=== PATIENT | male | born 1965 | race American Indian/Alaskan Native ===

== ENCOUNTER 2016-09-19 13:57 | Inpatient (IN) | payer OTHER ==
[2016-09-19 14:28] LABS: Basophils % (Auto) 0.5 % (0.0-1.8); Eosinophils % (Auto) 4.1 % (0.0-4.3); Hematocrit 26.4 % (35.5-45.6); Hemoglobin 8.6 gm/dl (11.8-15.2); Mean Corpuscular HGB Conc 32 % (32-34); Mean Corpuscular Hemoglobin 29 pg (28-32); Mean Corpuscular Volume 90 fl (84-94); Platelet Count 197 K/mm3 (140-440); Red Blood Count 2.94 M/mm3 (3.65-5.03); Red Cell Distribution Width 14.3 % (13.2-15.2); White Blood Count 7.5 K/mm3 (4.5-11.0)
[2016-09-19 14:42] LABS: BUN/Creatinine Ratio 15.53; Chloride 99.9 mmol/L (98-107); Potassium 4.3 mmol/L (3.6-5.0)
--- NOTE | 2016-09-19 15:12 | Cat Scan Report ---
CT scan of abdomen and pelvis without IV contrast: Findings: Normal lung bases. No pleural pericardial effusion. Multiple circumscribed hypodensities measuring up to 3.2 cm in diameter at the liver. Gallbladder is faintly visualized and appears unremarkable. Spleen appears normal. Pancreas appears unremarkable. Normal adrenals. Bilaterally enlarged kidneys with multiple innumerable cysts. Very faintly visualized and cannot be measured. Circumscribed scattered few hyperdensities right and left kidney probably hemorrhagic cysts. There is also tiny multiple calculi bilaterally. No evidence of hydronephrosis. Bladder appears normal. Moderate volume stool in gaseous colon. No bowel distention. No definite evidence of appendicitis or diverticulitis. There is noted large left inguinoscrotal hernia containing loops of small bowel without evidence of incarceration. Impression: Probable polycystic kidneys with multiple additional renal findings as detailed above. Multiple liver cysts. Large left inguinoscrotal hernia.
[2016-09-19 15:30] LABS: Bilirubin,Urine NEG (Negative); Blood,Urine MOD (Negative); Ketones,Urine NEG (Negative); Leukocyte Esterase,Urine MOD (Negative); Nitrite,Urine NEG (Negative); Urobilinogen,Urine < 2.0 mg/dL (<2.0)
[2016-09-19 15:31] LABS: RBC,Urine > 182.0 /HPF (0.0-6.0)
[2016-09-19] MEDS ORDERED: MACROBID PO ONE (20:27)
[2016-09-19] MEDS ORDERED: MORPHINE IM ONE (20:27)
[2016-09-19] MEDS ORDERED: MORPHINE IV ONE (20:45)
--- NOTE | 2016-09-19 21:53 | Emergency Department Report ---
HPI - General Chief Complaint: Abdominal Pain Time Seen by Provider: 09/19/16 20:02 - HPI HPI: This is a 51-year-old Afro-[place] Citizen male presents to the emergency department with a 2 day history of blood in the urine as well as some acute on chronic flank pains. He says that it goes from the left to the right side and he has a history of kidney stones that the "kidney doctor has been watching." However the patient does not have a kidney doctor but does have a urologist, at [facility]. He denies any nausea, vomiting, fever, chest pain or shortness of breath. He took some Tylenol with some relief. He has a past medical history of COPD, GERD, coronary artery disease with [place], hypertension, polycystic kidney disease. The patient does say that he has a history of some renal insufficiency but is not on dialysis. He says that the last time he had gross blood in the urine he ended up on dialysis and this was at [facility]. No recent travel or sick contacts at home. His primary care doctor is Dr. Charli Drake. ED Past Medical Hx - Past Medical History Hx Hypertension: Yes Hx Heart Attack/AMI: Yes (X 2) Hx Congestive Heart Failure: Yes Hx GERD: Yes Hx Renal Disease: Yes (POLYCYSTIC KIDNEY DISEASE) Hx Kidney Stones: Yes Hx COPD: Yes Additional medical history: LEFT INGUINAL HERNIA - Surgical History Additional Surgical History: KIDNEY STONES -LASER / LITHOTRIPSY. HERNIA REPAIR. PERMACATH AND REMOVAL - Social History Smoking Status: Former Smoker Substance Use Type: Alcohol - Medications Home Medications: Home Medications Medication Instructions Recorded Confirmed Last Taken Type AtorvaSTATin [Lipitor] 20 mg PO QHS 09/19/16 09/19/16 Unknown History Carvedilol [Coreg] 25 mg PO BID 09/19/16 09/19/16 Unknown History Finasteride [Proscar] 5 mg PO QDAY 09/19/16 09/19/16 Unknown History Furosemide [Lasix TAB] 40 mg PO QDAY 09/19/16 09/19/16 Unknown History ISOSORBIDE MONOnitrate [Imdur ER] 30 mg PO DAILY 09/19/16 09/19/16 Unknown History Potassium Chloride 20 meq PO DAILY 09/19/16 09/19/16 Unknown History Tamsulosin [Flomax] 0.4 mg PO QDAY 09/19/16 09/19/16 Unknown History hydrALAZINE [Apresoline] 25 mg PO TID 09/19/16 09/19/16 Unknown History ED Review of Systems ROS: Stated complaint: KIDNEY STONE Other details as noted in HPI Comment: All other systems reviewed and negative Constitutional: denies: chills, fever Eyes: denies: eye pain, eye discharge, vision change ENT: denies: ear pain, throat pain Respiratory: denies: cough, shortness of breath, wheezing Cardiovascular: denies: chest pain, palpitations Gastrointestinal: abdominal pain. denies: nausea, vomiting Genitourinary: hematuria. denies: discharge Musculoskeletal: denies: back pain, joint swelling, arthralgia Skin: denies: rash, lesions Neurological: denies: headache, weakness, paresthesias Physical Exam - Physical Exam Vital Signs: Vital Signs 09/19/16 09/19/16 09/19/16 14:05 20:19 21:09 Temperature 99.2 F 99.2 F Pulse Rate 100 H 98 H Respiratory 18 16 18 Rate Blood Pressure 113/69 Blood Pressure 153/92 [Right] O2 Sat by Pulse 100 98 Oximetry Physical Exam: GENERAL: The patient is well-developed well-nourished. HEENT: Normocephalic. Atraumatic. Extraocular motions are intact. Patient has moist mucous membranes. Pupils equal reactive to light bilaterally. NECK: Supple. Trachea is midline. CHEST/LUNGS: Clear to auscultation. There is no respiratory distress noted. HEART/CARDIOVASCULAR: Regular. There is no tachycardia. There is no gallop rub or murmur. ABDOMEN: Abdomen is soft. There is mild generalized abdominal tenderness to palpation. No guarding rebound tenderness. Patient has normal bowel sounds. There is no abdominal distention. SKIN: There is no rash. There is no edema. There is no diaphoresis. NEURO: The patient is awake, alert, and oriented. The patient is cooperative. The patient has no focal neurologic deficits. The patient has normal speech. MUSCULOSKELETAL: There is no tenderness or deformity. There is no limitation range of motion. There is no evidence of acute injury. ED Course Vital Signs 09/19/16 09/19/16 09/19/16 14:05 20:19 21:09 Temperature 99.2 F 99.2 F Pulse Rate 100 H 98 H Respiratory 18 16 18 Rate Blood Pressure 113/69 Blood Pressure 153/92 [Right] O2 Sat by Pulse 100 98 Oximetry ED Medical Decision Making - Lab Data Result diagrams: 09/19/16 14:13 09/19/16 14:13 - Radiology Data Radiology results: report reviewed CT scan of abdomen and pelvis without IV contrast: Findings: Normal lung bases. No pleural pericardial effusion. Multiple circumscribed hypodensities measuring up to 3.2 cm in diameter at the liver. Gallbladder is faintly visualized and appears unremarkable. Spleen appears normal. Pancreas appears unremarkable. Normal adrenals. Bilaterally enlarged kidneys with multiple innumerable cysts. Very faintly visualized and cannot be measured. Circumscribed scattered few hyperdensities right and left kidney probably hemorrhagic cysts. There is also tiny multiple calculi bilaterally. No evidence of hydronephrosis. Bladder appears normal. Moderate volume stool in gaseous colon. No bowel distention. No definite evidence of appendicitis or diverticulitis. There is noted large left inguinoscrotal hernia containing loops of small bowel without evidence of incarceration. Impression: Probable polycystic kidneys with multiple additional renal findings as detailed above. Multiple liver cysts. Large left inguinoscrotal hernia. - Medical Decision Making 51-year-old male presents the emergency department with 2 day history of gross hematuria as well some abdominal pain. He thought it might be kidney stones as he has a history of this. He also has history of polycystic kidney disease. Patient appears to have significant renal failure and the patient himself does not know what his baseline creatinine is but he is not usually on dialysis. The last time that he had gross hematuria with this kind of discomfort he ended up on dialysis at [facility]. Since the patient does not have a oil gauger, I will seek admission to the hospital for a nephrology consultation as my concern would be that the patient continues to have decline of his kidney function without quick follow-up with a oil gauger and the patient and his up on dialysis. Patient has been accepted for admission by the hospitalist, Dr. Wang. - Differential Diagnosis nephrolithiasis, hydronephrosis, polycystic kidney, malignancy Critical Care Time: No Critical care attestation.: If time is entered above; I have spent that time in minutes in the direct care of this critically ill patient, excluding procedure time. ED Disposition Clinical Impression: Gross hematuria Abdominal pain Qualifiers: Abdominal location: generalized Qualified Code(s): R10.84 - Generalized abdominal pain Renal failure Qualifiers: Renal failure chronicity: acute on chronic Chronic kidney disease stage: unspecified stage UTI (urinary tract infection) Qualifiers: Urinary tract infection type: acute cystitis Hematuria presence: with hematuria Qualified Code(s): N30.01 - Acute cystitis with hematuria Disposition: OP ADMIT IP TO THIS HOSP Is pt being admited?: Yes Condition: Stable Referrals: PRIMARY CAREMD [Primary Care Provider] - 3-5 Days Time of Disposition: 22:55
[2016-09-19] MEDS ORDERED: TYLENOL PR PRN (23:36)
--- NOTE | 2016-09-20 01:57 | History and Physical Report ---
History of Present Illness Date of examination: 09/19/16 Date of admission: 09/19/16 23:32 Chief complaint: Chief complaint is hematuria, order complaints include flank pain, History of present illness: History of presenting illness, patient is a 51-year-old male presenting to the emergency room with hematuria going on for few days and associated with flank pain. There is no history of fever, no history of nausea vomiting, no history of shortness of breath or chest pain, patient stated he has history of any stones in the past and is being watched by his urologist, also patient said his had hematuria in the past and ended up being on dialysis because of his chronic kidney problems which was treated at [facility]. Past History Past Medical History: acute [place], GERD, hypertension, renal failure, other ( POLYCYSTIC KIDNEY DISEASE, CKD,LEFT INGUINAL HERNIA) Past Surgical History: hernia repair Medications and Allergies Allergies Allergy/AdvReac Type Severity Reaction Status Date / Time No Known Allergies Allergy Unverified 09/19/16 14:08 Home Medications Medication Instructions Recorded Confirmed Last Taken Type AtorvaSTATin [Lipitor] 20 mg PO QHS 09/19/16 09/19/16 Unknown History Carvedilol [Coreg] 25 mg PO BID 09/19/16 09/19/16 Unknown History Finasteride [Proscar] 5 mg PO QDAY 09/19/16 09/19/16 Unknown History Furosemide [Lasix TAB] 40 mg PO QDAY 09/19/16 09/19/16 Unknown History ISOSORBIDE MONOnitrate [Imdur ER] 30 mg PO DAILY 09/19/16 09/19/16 Unknown History Potassium Chloride 20 meq PO DAILY 09/19/16 09/19/16 Unknown History Tamsulosin [Flomax] 0.4 mg PO QDAY 09/19/16 09/19/16 Unknown History hydrALAZINE [Apresoline] 25 mg PO TID 09/19/16 09/19/16 Unknown History Active Meds: Active Medications Acetaminophen (Tylenol) 650 mg SD Q4H PRN PRN Reason: Fever Ceftriaxone Sodium (Rocephin/Ns 1 Gm/50 Ml) 1 gm in 50 mls @ 100 mls/hr IV Q24HR ZACHARY PRN Reason: Protocol Morphine Sulfate (Morphine) 2 mg IV Q3H PRN PRN Reason: Pain, Moderate (4-6) Ondansetron HCl (Zofran) 4 mg IV Q6H PRN PRN Reason: Nausea And Vomiting Review of Systems Constitutional: no weight gain, no fever, no chills, no sweats, no night sweats , no anorexia, no fatigue, no weakness, no malaise, no poor appetite, no daytime sleepiness Eyes: bilateral: other (NO BILATERAL EYE SYMPTOMS) Ears, nose, mouth and throat: no ear pain, no ear discharge, no tinnitis, no decreased hearing, no nose pain, no nasal congestion, no nasal discharge, no sinus pressure, no sinus pain, no dental pain, no mouth pain, no dysphagia, no hoarseness, no sore throat, no swelling in mouth, no swelling in throat, no voice changes, no post-nasal drip, no headache, no vertigo, no pain front of neck, no neck fullness/pressure, no neck lump Cardiovascular: no chest pain, no orthopnea, no palpitations, no rapid/ irregular heart beat, no edema, no syncope, no lightheadedness, no shortness of breath, no dyspnea on exertion, no paroxysmal nocturnal dyspnea, no claudication , no phlebitis, no high blood pressure, no leg edema, no decreased exercise tolerance Respiratory: no cough, no cough with sputum, no excessive sputum, no hemoptysis , no shortness of breath, no dyspnea on exertion, no congestion, no wheezing, no pleurisy, no pain, no pain on inspiration, no sleep apnea, no respiratory infections, no home oxygen Gastrointestinal: no abdominal pain, no nausea, no vomiting, no diarrhea, no constipation, no change in bowel habits, no hematemesis, no coffee ground emesis , no melena, no hematochezia, no loss of appetite, no early satiety, no heartburn, no excessive gas, no jaundice, no dyspepsia/bloating, no early satiety, no lactose intolerance Genitourinary Male: hematuria, flank pain, kidney stones, other (LEFT INGUINAL HERNIA), no urinary frequency, no urinary hesitancy, no nocturia, no incontinence, no decreased libido, no testicular pain, no testicular lump, no difficulties fathering child, no polyuria, no urinary retention Rectal: no pain, no hemorrhoids, no flatulence Musculoskeletal: no neck pain, no shooting arm pain, no arm numbness/tingling, no low back pain, no shooting leg pain, no leg numbness/tingling, no morning stiffness, no muscle weakness, no muscle cramps, no myalgias, no limitation of motion, no frequent falls, no fractures, no loss of height Integumentary: no rash, no pruritis, no redness, no sores, no wounds, no jaundice, no boils, no blisters, no bullae, no lesions, no darkening of skin, no depigmentation, no acne, no dryness, no color changes, no unusual bruising, no change in hair/nails, no brittle nails, no striae, no hirsutism, no foot/leg ulcers, no onychomycosis Neurological: no head injury, no transient paralysis, no paralysis, no weakness , no parathesias, no numbness, no tingling, no seizures, no syncope, no tremors , no ataxia, no vertigo, no headaches, no migraines, no convulsions, no aphasia , no change in speech, no change in mentation, no confusion, no memory loss, no changes in smell/taste, no gait dysfunction, no motor disturbance, no sensory deficit, no double vision, no loss of vision, no hearing difficulties, no burning pain, no paralysis, no spasticity Psychiatric: no anxiety, no memory loss, no change in sleep habits, no sleep disturbances, no insomnia, no hypersomnia, no change in appetite, no change in libido, no suicidal ideation, no disorientation, no depression, no hopelessness , no anhedonia, no anxiety attacks, no difficulties concentrating, no confusion , no irritability, no sadness/tearfullness, no mood swings Endocrine: no cold intolerance, no heat intolerance, no polyphagia, no excessive thirst, no polydipsia, no polyuria, no nocturia, no excessive sweating , no flushing, no increase in ring/shoe/hat size, no proptosis, no deepening of the voice, no thyroid mass, no palpatations, no high blood sugars, no low blood sugars Hematologic/Lymphatic: no easy bruising, no easy bleeding, no lymphadenopathy, no lymphedema, no thrombophilia Allergic/Immunologic: no urticaria, no persistent infections, no anaphylaxis, no gluten intolerance, no seasonal allergies Exam - Constitutional Vitals: Temp Pulse Resp BP Pulse Ox 98.5 F 87 16 134/81 97 09/20/16 01:09 09/20/16 01:09 09/20/16 01:09 09/20/16 01:09 09/20/16 01:09 General appearance: Present: no acute distress. Absent: disheveled - EENT Eyes: Present: PERRL, EOM intact. Absent: scleral icterus, conjunctival injection, mydriasis ENT: hearing intact, clear oral mucosa, dentition normal, no oropharyngeal erythema, no poor dentition - Neck Neck: Present: supple, normal ROM. Absent: enlarged thyroid, carotid bruits - Respiratory Respiratory effort: normal - Cardiovascular Rhythm: regular Heart Sounds: Present: S1 & S2. Absent: gallop, systolic murmur, diastolic murmur, rub, click - Extremities Extremities: no ischemia, pulses intact, No edema Peripheral Pulses: within normal limits - Abdominal General gastrointestinal: Present: soft, non-tender, non-distended. Absent: tender, hypoactive bowel sounds, absent bowel sounds, hepatomegaly Male genitourinary: Present: left inguinal hernia. Absent: urethral discharge - Rectal Rectal Exam: deferred - Integumentary Integumentary: Present: clear, warm, dry, normal turgor. Absent: erythema, rash , clammy - Musculoskeletal Musculoskeletal: strength equal bilaterally - Psychiatric Psychiatric: appropriate mood/affect Results - Labs CBC & Chem 7: 09/19/16 14:13 09/19/16 14:13 Labs: Laboratory Last Values WBC 7.5 K/mm3 (4.5-11.0) 09/19/16 14:13 RBC 2.94 M/mm3 (3.65-5.03) L 09/19/16 14:13 Hgb 8.6 gm/dl (11.8-15.2) L 09/19/16 14:13 Hct 26.4 % (35.5-45.6) L 09/19/16 14:13 MCV 90 fl (84-94) 09/19/16 14:13 MCH 29 pg (28-32) 09/19/16 14:13 MCHC 32 % (32-34) 09/19/16 14:13 RDW 14.3 % (13.2-15.2) 09/19/16 14:13 Plt Count 197 K/mm3 (140-440) 09/19/16 14:13 Lymph % (Auto) 10.1 % (13.4-35.0) L 09/19/16 14:13 [place] % (Auto) 13.7 % (0.0-7.3) H 09/19/16 14:13 Eos % (Auto) 4.1 % (0.0-4.3) 09/19/16 14:13 Baso % (Auto) 0.5 % (0.0-1.8) 09/19/16 14:13 Lymph # 0.8 K/mm3 (1.2-5.4) L 09/19/16 14:13 [place] # 1.0 K/mm3 (0.0-0.8) H 09/19/16 14:13 Eos # 0.3 K/mm3 (0.0-0.4) 09/19/16 14:13 Baso # 0.0 K/mm3 (0.0-0.1) 09/19/16 14:13 Seg Neutrophils % 71.6 % (40.0-70.0) H 09/19/16 14:13 Seg Neutrophils # 5.4 K/mm3 (1.8-7.7) 09/19/16 14:13 Sodium 132 mmol/L (137-145) L 09/19/16 14:13 Potassium 4.3 mmol/L (3.6-5.0) 09/19/16 14:13 Chloride 99.9 mmol/L (98-107) 09/19/16 14:13 Carbon Dioxide 20 mmol/L (22-30) L 09/19/16 14:13 Anion Gap 16 mmol/L 09/19/16 14:13 BUN 73 mg/dL (9-20) H 09/19/16 14:13 Creatinine 4.7 mg/dL (0.8-1.5) H 09/19/16 14:13 Estimated GFR 16 ml/min 09/19/16 14:13 BUN/Creatinine Ratio 15.53 % 09/19/16 14:13 Glucose 123 mg/dL (75-100) H 09/19/16 14:13 Calcium 9.0 mg/dL (8.4-10.2) 09/19/16 14:13 Urine Color Red (Yellow) 09/19/16 15:02 Urine Turbidity Cloudy (Clear) 09/19/16 15:02 Urine pH 5.0 (5.0-7.0) 09/19/16 15:02 Ur Specific [place] 1.015 (1.003-1.030) 09/19/16 15:02 Urine Protein 100 mg/dl mg/dL (Negative) 09/19/16 15:02 Urine Glucose (UA) 50 mg/dL (Negative) 09/19/16 15:02 Urine Ketones Neg mg/dL (Negative) 09/19/16 15:02 Urine Blood Mod (Negative) 09/19/16 15:02 Urine Nitrite Neg (Negative) 09/19/16 15:02 Urine Bilirubin Neg (Negative) 09/19/16 15:02 Urine Urobilinogen < 2.0 mg/dL (<2.0) 09/19/16 15:02 Ur Leukocyte Esterase Mod (Negative) 09/19/16 15:02 Urine WBC (Auto) 30.0 /HPF (0.0-6.0) H 09/19/16 15:02 Urine RBC (Auto) > 182.0 /HPF (0.0-6.0) 09/19/16 15:02 Assessment and Plan - Patient Problems (1) Left inguinal hernia Current Visit: Yes Status: Acute (2) Gross hematuria Current Visit: Yes Status: Acute (3) Renal failure Current Visit: Yes Status: Acute Qualifiers: Renal failure chronicity: acute on chronic Acute renal failure type: A Chronic kidney disease stage: unspecified stage Plan to address problem: Patient will be admitted to medical floor and will be on IV Rocephin 1 g every 24 hours, patient will have CBC and basic metabolic panel checked this morning 09/20/2016 I will have nephrology consult with Dr. Ortiz because of chronic kidney disease, patient will also have surgical consult with Dr. Varela for left inguinal hernia, patient will be on IV morphine 2 mg every 3 hours as needed for pain I will be on when necessary medications like IV Zofran for nausea vomiting and Tylenol by mouth for fever or headache, DVT prophylaxis will be by sequential compressive device. (4) UTI (urinary tract infection) Current Visit: Yes Status: Acute Qualifiers: Urinary tract infection type: acute cystitis Hematuria presence: with hematuria Indwelling urinary catheter type: I Encounter type: E Qualified Code(s): N30.01 - Acute cystitis with hematuria
[2016-09-20 05:40] LABS: Hematocrit 29.1 % (35.5-45.6); Hemoglobin 9.5 gm/dl (11.8-15.2); Mean Corpuscular HGB Conc 33 % (32-34); Mean Corpuscular Hemoglobin 29 pg (28-32); Mean Corpuscular Volume 89 fl (84-94); Platelet Count 216 K/mm3 (140-440); Red Blood Count 3.29 M/mm3 (3.65-5.03); Red Cell Distribution Width 13.8 % (13.2-15.2); White Blood Count 8.5 K/mm3 (4.5-11.0)
[2016-09-20 06:04] LABS: BUN/Creatinine Ratio 17.04; Calcium 9.3 mg/dL (8.4-10.2); Chloride 102.3 mmol/L (98-107); Potassium 4.2 mmol/L (3.6-5.0)
[2016-09-20] MEDS: ZOFRAN IV PRN (06:25)
[2016-09-20] MEDS: MORPHINE IV PRN ×4 (06:25→23:01)
--- NOTE | 2016-09-20 09:57 | Admit Criteria Form ---
Admission Criteria Documentation: URINARY COMPLICATIONS Clinical Indications for Inpatient Care (Place 'X' for any and all applicable criteria): Ongoing inpatient care may be indicated for urinary complications with ANY ONE of the following: [X ]I. Urinary tract infection requiring inpatient care as indicated by ANY ONE of the following(8)(19)(20): [ ]a) Severe symptoms (eg, high fever, severe pain) [ ]b) Vomiting or dehydration requiring ongoing inpatient care [X ]c) IV antibiotic needs that cannot be managed at lower level of care [ ]d) Hemodynamic instability [ ]e) Obstruction of collecting system by stone or tumor [ ]II. Urinary retention requiring drainage or surgery (3)(4)(5)(17)(18) [ X]III. Renal failure (Use Renal Failure Criteria for further information.) [ ]IV. Oliguria(30) [ ]V. Post obstructive diuresis requiring close monitoring of urine output and intravenous compensation for excessive fluid losses(33) Extended stay beyond goal length of stay for primary condition may be needed until ALL of the following are present(3)(4)(5)(8): [ ]a) Renal function (creatinine) at baseline, or daily decreases in creatinine consistent with renal function return [ ]b) Voiding adequately or with urinary catheter or percutaneous suprapubic tube and management regimen in place that is performable at lower level of care. [ ]c) Urine output adequate [ ]d) Fever absent or resolving [ ]e) Infection absent or treatable at next level of care The original [employer] content created by [employer] has been revised. The portions of the content which have been revised are identified through the use of italic text or in bold, and [facility] has neither reviewed nor approved the modified material. All other unmodified content is copyright [employer] Please see references footnoted in the original [employer] edition 2016 Admission Criteria Met: Yes
--- NOTE | 2016-09-20 09:58 | Consultation ---
History of Present Illness - Reason for Consult Consult date: 09/20/16 acute renal failure, chronic renal failure, hyponatremia - History of Present Illness patient with h/o CKD due to polycystic kidney disease, does not follow with a campground manager, according to him he requried dialysis about 2 years ago but his kidney function improved since, he mention that his mother had the same problem and required dialysis at some point, he came to the ED for hematuria and flank pain for the last few days, he follows with urology for the issues, he has h/o kidney stones and UTI. when seen he stated he started to feel better when seen this AM but remains to have blood in the urine Past History Past Medical History: acute [place], GERD, hypertension, renal failure, other ( POLYCYSTIC KIDNEY DISEASE, CKD,LEFT INGUINAL HERNIA) Past Surgical History: hernia repair Medications and Allergies Allergies Allergy/AdvReac Type Severity Reaction Status Date / Time No Known Allergies Allergy Unverified 09/19/16 14:08 Home Medications Medication Instructions Recorded Confirmed Last Taken Type AtorvaSTATin [Lipitor] 20 mg PO QHS 09/19/16 09/19/16 Unknown History Carvedilol [Coreg] 25 mg PO BID 09/19/16 09/19/16 Unknown History Finasteride [Proscar] 5 mg PO QDAY 09/19/16 09/19/16 Unknown History Furosemide [Lasix TAB] 40 mg PO QDAY 09/19/16 09/19/16 Unknown History ISOSORBIDE MONOnitrate [Imdur ER] 30 mg PO DAILY 09/19/16 09/19/16 Unknown History Potassium Chloride 20 meq PO DAILY 09/19/16 09/19/16 Unknown History Tamsulosin [Flomax] 0.4 mg PO QDAY 09/19/16 09/19/16 Unknown History hydrALAZINE [Apresoline] 25 mg PO TID 09/19/16 09/19/16 Unknown History Active Meds: Active Medications Acetaminophen (Tylenol) 650 mg [place] Q4H PRN PRN Reason: Fever Ceftriaxone Sodium (Rocephin/Ns 1 Gm/50 Ml) 1 gm in 50 mls @ 100 mls/hr IV Q24HR ZACHARY PRN Reason: Protocol Sodium Chloride (Nacl 0.9% 1000 Ml) 1,000 mls @ 75 mls/hr IV DIRECT ZACHARY Morphine Sulfate (Morphine) 2 mg IV Q3H PRN PRN Reason: Pain, Moderate (4-6) Last Admin: 09/20/16 06:25 Dose: 2 mg Ondansetron HCl (Zofran) 4 mg IV Q6H PRN PRN Reason: Nausea And Vomiting Last Admin: 09/20/16 06:25 Dose: 4 mg Review of Systems All systems: negative (flank pain, hematuria) Exam - Vital Signs Vital signs: Vital Signs Temp Pulse Resp BP Pulse Ox 99.2 F 100 H 18 113/69 100 09/19/16 14:05 09/19/16 14:05 09/19/16 14:05 09/19/16 14:05 09/19/16 14:05 - General Appearance General appearance: well-developed, well-nourished EENT: ATNC, PERRL, mucous membranes moist Neck: Present: neck supple Respiratory: Clear to Ascultation, Normal Exam Heart: regular, S1S2 Gastrointestinal: Present: normoactive bowel sounds. Absent: tenderness, distended, guarding Integumentary: no rash, warm and dry Neurologic: no focal deficit, no asterixis, alert and oriented x3 Musculoskeletal: Present: other (no edema in BLE) Psychiatric: mood/affect appropriate, cooperative Results - Lab Results 09/20/16 05:23 09/20/16 05:23 Most recent lab results Calcium 9.3 mg/dL (8.4-10.2) 09/20/16 05:23 Assessment and Plan - Patient Problems (1) Chronic kidney disease (CKD) stage G4/A1, severely decreased glomerular filtration rate (GFR) between 15-29 mL/min/1.73 square meter and albuminuria creatinine ratio less than 30 mg/g Current Visit: Yes Status: Acute Plan to address problem: patient with h/o PCKD, baseline Cr is unknown will start IVF with NS 75 cc/h 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 renally dose meds strict I&O daily weights avoid nephrotixins (2) Anemia in chronic renal disease Current Visit: Yes Status: Acute Qualifiers: Chronic kidney disease stage: C Plan to address problem: iron panel in AM may need to start BARRY supplement (3) Gross hematuria Current Visit: Yes Status: Acute Plan to address problem: will placed bridges IVF as above on rocephin (4) UTI (urinary tract infection) Current Visit: Yes Status: Acute Qualifiers: Urinary tract infection type: acute cystitis Hematuria presence: with hematuria Indwelling urinary catheter type: I Encounter type: E Qualified Code(s): N30.01 - Acute cystitis with hematuria Plan to address problem: urine cultures are pending
[2016-09-20] MEDS: NACL 0.9% 1000 ML 1,000 ML IV SCH (10:30)
[2016-09-20] MEDS: ROCEPHIN/NS 1 GM/50 ML 1 GM/50 ML BAG IV SCH (10:41)
--- NOTE | 2016-09-20 12:45 | Progress Note ---
Assessment and Plan Assessment and plan: UTI with hematuria - Patient is on IV antibiotic - Patient has history of hematuria previously and has been followed by [facility] and have scheduled appointment after his discharge from here Acute on chronic kidney disease stage IV - Nephrology is consulted and patient may need dialysis - Patient previously dialyzed and it was discontinued after his kidney function get improved, patient currently may need dialysis, peritoneal dialysis - Surgery was consulted for PD placement and management of inguinal hernia Left inguinal hernia extending to the left testis - Surgery consulted for possible hernia repair Anemia of chronic disease/CKD DVT prophylaxis - heparin Disposition -Continue inpatient care History Interval history: Patient was seen and done this morning, patient has hematuria. Hospitalist Physical - Physical exam Narrative exam: Not in cardiopulmonary distress. The patient appeared chronically sick looking. Vital signs as documented. Head exam is unremarkable. No scleral icterus . Neck is without jugular venous distension, thyromegaly, or carotid bruits. Lungs are clear to auscultation. Cardiac exam reveals regular rate and Rhythm. First and second heart sounds normal. No murmurs, rubs or gallops. Abdominal exam reveals normal bowel sounds, no masses, no organomegaly and no aortic enlargement. Genitourinary patient has left inguinal hernia descending down to the testi.s Extremities are nonedematous and both femoral and pedal pulses are normal. MANAGER STATISTICAL PROGRAMMING: Alert and oriented 3. No focal weakness. - Constitutional Vitals: Temp Pulse Resp BP Pulse Ox 98.3 F 82 16 122/70 98 09/20/16 08:00 09/20/16 08:00 09/20/16 08:00 09/20/16 08:00 09/20/16 08:00 General appearance: Present: no acute distress. Absent: disheveled Results - Labs CBC & Chem 7: 09/20/16 05:23 09/20/16 05:23 Labs: Laboratory Last Values WBC 8.5 K/mm3 (4.5-11.0) 09/20/16 05:23 RBC 3.29 M/mm3 (3.65-5.03) L 09/20/16 05:23 Hgb 9.5 gm/dl (11.8-15.2) L 09/20/16 05:23 Hct 29.1 % (35.5-45.6) L 09/20/16 05:23 MCV 89 fl (84-94) 09/20/16 05:23 MCH 29 pg (28-32) 09/20/16 05:23 MCHC 33 % (32-34) 09/20/16 05:23 RDW 13.8 % (13.2-15.2) 09/20/16 05:23 Plt Count 216 K/mm3 (140-440) 09/20/16 05:23 Lymph % (Auto) 10.1 % (13.4-35.0) L 09/19/16 14:13 [place] % (Auto) 13.7 % (0.0-7.3) H 09/19/16 14:13 Eos % (Auto) 4.1 % (0.0-4.3) 09/19/16 14:13 Baso % (Auto) 0.5 % (0.0-1.8) 09/19/16 14:13 Lymph # 0.8 K/mm3 (1.2-5.4) L 09/19/16 14:13 [place]y # 1.0 K/mm3 (0.0-0.8) H 09/19/16 14:13 Eos # 0.3 K/mm3 (0.0-0.4) 09/19/16 14:13 Baso # 0.0 K/mm3 (0.0-0.1) 09/19/16 14:13 Seg Neutrophils % 71.6 % (40.0-70.0) H 09/19/16 14:13 Seg Neutrophils # 5.4 K/mm3 (1.8-7.7) 09/19/16 14:13 Sodium 134 mmol/L (137-145) L 09/20/16 05:23 Potassium 4.2 mmol/L (3.6-5.0) 09/20/16 05:23 Chloride 102.3 mmol/L (98-107) 09/20/16 05:23 Carbon Dioxide 18 mmol/L (22-30) L 09/20/16 05:23 Anion Gap 18 mmol/L 09/20/16 05:23 BUN 75 mg/dL (9-20) H 09/20/16 05:23 Creatinine 4.4 mg/dL (0.8-1.5) H 09/20/16 05:23 Estimated GFR 17 ml/min 09/20/16 05:23 BUN/Creatinine Ratio 17.04 % 09/20/16 05:23 Glucose 105 mg/dL (75-100) H 09/20/16 05:23 Calcium 9.3 mg/dL (8.4-10.2) 09/20/16 05:23 Urine Color Red (Yellow) 09/19/16 15:02 Urine Turbidity Cloudy (Clear) 09/19/16 15:02 Urine pH 5.0 (5.0-7.0) 09/19/16 15:02 Ur Specific [place] 1.015 (1.003-1.030) 09/19/16 15:02 Urine Protein 100 mg/dl mg/dL (Negative) 09/19/16 15:02 Urine Glucose (UA) 50 mg/dL (Negative) 09/19/16 15:02 Urine Ketones Neg mg/dL (Negative) 09/19/16 15:02 Urine Blood Mod (Negative) 09/19/16 15:02 Urine Nitrite Neg (Negative) 09/19/16 15:02 Urine Bilirubin Neg (Negative) 09/19/16 15:02 Urine Urobilinogen < 2.0 mg/dL (<2.0) 09/19/16 15:02 Ur Leukocyte Esterase Mod (Negative) 09/19/16 15:02 Urine WBC (Auto) 30.0 /HPF (0.0-6.0) H 09/19/16 15:02 Urine RBC (Auto) > 182.0 /HPF (0.0-6.0) 09/19/16 15:02
--- NOTE | 2016-09-20 17:02 | Consultation ---
History of Present Illness - Reason for Consult Consult date: 09/20/16 - History of Present Illness Date of consultation September 20 Requesting physician-Dr Nathan Ortiz - nephrology Reason reason for consultation- chronic kidney disease evaluation for a peritoneal dialysis catheter insertion and repair of left inguinal hernia History of present illness 51-year-old Mr. Nagel is known to me from his office visit 6 months ago. He has a large left inguinal scrotal hernia that required operative report. Because of the multiple associated medical problems the plan to do the procedure under spinal anesthesia. He was lost to follow- up and currently is admitted with flank pain and hematuria. This is being worked up by consultation with a subway conductor. And because of the poor kidney function he will require some sort of dialysis. He is likely agreed for peritoneal dialysis and hence I have been asked to see him. Past medical history history of acute [place] hypertension diabetes and renal failure Medications as per the hospitalist another consultants. Examination reveals a well-built well-nourished Mr. Shona Wallace, easily identified me and voices no complaints at the present time. Lungs are presently clear to auscultation. Abdomen is soft nontender without any evidence of ascites. Groin there is a large inguinal scrotal hernia that is partially reducible with some discomfort to the patient. No evidence of a bowel obstruction or signed lesion at the present time. Right groin has no evidence of hernia. Her extremities have 1+ pitting edema that is slowly resolving. Impression end-stage renal failure will require peritoneal dialysis catheter. Large left inguinal scrotal hernia that'll require repair. After discussion with Dr. Ortiz of nephrology he will be discharged home will be seen in the office and I will schedule him for open mesh repair of the left groin hernia and a laparoscopic band placement of bilateral dialysis catheter under general anesthesia. Patient has concerns consented to see me in the office after discharge. Thank you Dr. Ortiz for the courtesy of this consultation - -- Past History Past Medical History: acute [place], GERD, hypertension, renal failure, other ( POLYCYSTIC KIDNEY DISEASE, CKD,LEFT INGUINAL HERNIA) Past Surgical History: hernia repair Medications and Allergies Allergies Allergy/AdvReac Type Severity Reaction Status Date / Time No Known Allergies Allergy Unverified 09/19/16 14:08 Home Medications Medication Instructions Recorded Confirmed Last Taken Type AtorvaSTATin [Lipitor] 20 mg PO QHS 09/19/16 09/19/16 Unknown History Carvedilol [Coreg] 25 mg PO BID 09/19/16 09/19/16 Unknown History Finasteride [Proscar] 5 mg PO QDAY 09/19/16 09/19/16 Unknown History Furosemide [Lasix TAB] 40 mg PO QDAY 09/19/16 09/19/16 Unknown History ISOSORBIDE MONOnitrate [Imdur ER] 30 mg PO DAILY 09/19/16 09/19/16 Unknown History Potassium Chloride 20 meq PO DAILY 09/19/16 09/19/16 Unknown History Tamsulosin [Flomax] 0.4 mg PO QDAY 09/19/16 09/19/16 Unknown History hydrALAZINE [Apresoline] 25 mg PO TID 09/19/16 09/19/16 Unknown History Active Meds: Active Medications Acetaminophen (Tylenol) 650 mg [place] Q4H PRN PRN Reason: Fever Ceftriaxone Sodium (Rocephin/Ns 1 Gm/50 Ml) 1 gm in 50 mls @ 100 mls/hr IV Q24HR ZACHARY PRN Reason: Protocol Last Admin: 09/20/16 10:41 Dose: 100 mls/hr Sodium Chloride (Nacl 0.9% 1000 Ml) 1,000 mls @ 75 mls/hr IV DIRECT ZACHARY Last Admin: 09/20/16 10:30 Dose: 75 mls/hr Morphine Sulfate (Morphine) 2 mg IV Q3H PRN PRN Reason: Pain, Moderate (4-6) Last Admin: 09/20/16 10:51 Dose: 2 mg Ondansetron HCl (Zofran) 4 mg IV Q6H PRN PRN Reason: Nausea And Vomiting Last Admin: 09/20/16 06:25 Dose: 4 mg Exam - Constitutional Vitals: Temp Pulse Resp BP Pulse Ox 98.5 F 78 14 116/68 98 09/20/16 16:00 09/20/16 16:00 09/20/16 16:00 09/20/16 16:00 09/20/16 16:00 Results - Labs CBC & Chem 7: 09/20/16 05:23 09/20/16 05:23 Labs: Abnormal lab results 09/20/16 09/20/16 Range/Units 05:23 05:23 RBC 3.29 L (3.65-5.03) M/mm3 Hgb 9.5 L (11.8-15.2) gm/dl Hct 29.1 L (35.5-45.6) % Sodium 134 L (137-145) mmol/L Carbon Dioxide 18 L (22-30) mmol/L BUN 75 H (9-20) mg/dL Creatinine 4.4 H (0.8-1.5) mg/dL Glucose 105 H (75-100) mg/dL
[2016-09-21] MEDS: NACL 0.9% 1000 ML 1,000 ML IV SCH ×2 (01:02→10:21)
[2016-09-21] MEDS: MORPHINE IV PRN ×2 (05:49→18:13)
[2016-09-21] MEDS: ZOFRAN IV PRN (05:54)
[2016-09-21 06:20] LABS: BUN/Creatinine Ratio 14.09; Calcium 8.7 mg/dL (8.4-10.2); Phosphorous 3.2 mg/dL (2.5-4.5); Potassium 4.7 mmol/L (3.6-5.0)
[2016-09-21 06:47] LABS: Hematocrit 27.6 % (35.5-45.6); Hemoglobin 8.9 gm/dl (11.8-15.2); Mean Corpuscular HGB Conc 32 % (32-34); Mean Corpuscular Hemoglobin 29 pg (28-32); Mean Corpuscular Volume 91 fl (84-94); Platelet Count 240 K/mm3 (140-440); Red Blood Count 3.04 M/mm3 (3.65-5.03); Red Cell Distribution Width 14.6 % (13.2-15.2); White Blood Count 13.9 K/mm3 (4.5-11.0)
--- NOTE | 2016-09-21 08:06 | Progress Note ---
Assessment and Plan - Patient Problems (1) Gross hematuria Current Visit: Yes Status: Acute Plan to address problem: On 0.9% NS infusion at 75 ml/hr Hartley Catheter: Yes (Placed on 09/20/16) Urine culture pending On Rocephin 1 g IVPB every 24 hours (2) Left inguinal hernia Current Visit: Yes Status: Acute Plan to address problem: Dr Cuevas (General surgery) on board, will follow up with patient in his office and schedule surgical repair of left inguinal hernia and placement of peritoneal dialysis catheter (3) Chronic kidney disease (CKD) stage G4/A1, severely decreased glomerular filtration rate (GFR) between 15-29 mL/min/1.73 square meter and albuminuria creatinine ratio less than 30 mg/g Current Visit: Yes Status: Acute Plan to address problem: Renal function reviewed, SCr level was 4.4 today, yesterday's SCr level was 4.4 , non-oliguric No acute indication for initiation of [employer] at this time, will follow up as an outpatient Currently on 0.9% NS infusion at 75 ml/hr Renally dose medications Dr Vides on board, planning on left inguinal hernia repair and peritoneal dialysis catheter placement as an outpatient Ok to be discharged home from nephrology standpoint once medically cleared, will need to follow up with our nephrology practice within 1 week of discharge Obtain daily weight Strict intake and output Intake= 2560 ml Output= 603 ml (Net= 1957 ml) Renal plan discussed with Dr Barrios Continue supportive therapy (4) Anemia in chronic renal disease Current Visit: Yes Status: Acute Qualifiers: Chronic kidney disease stage: C Plan to address problem: Iron studies reviewed Start ferrous sulfate 325 mg orally three times a day (5) UTI (urinary tract infection) Current Visit: Yes Status: Acute Qualifiers: Urinary tract infection type: acute cystitis Hematuria presence: with hematuria Indwelling urinary catheter type: I Encounter type: E Qualified Code(s): N30.01 - Acute cystitis with hematuria Plan to address problem: On Rocephin 1 g IVPB every 24 hours Urine cultures pending Consider switching to oral levaquin 250 mg orally every 48 hours x 1 week as an outpatient, we will follow up urine cultures results as an outpatient and adjust antibiotic regimen accordingly Subjective Date of service: 09/21/16 Interval history: Patient reports feeling nauseated earlier this morning, but feels better now. Family at bedside. Objective - Vital Signs Vital signs: Vital Signs - 12hr 09/20/16 09/20/16 23:00 23:01 Temperature 99.4 F Pulse Rate [ 94 H Apical] Respiratory 18 20 Rate Blood Pressure 168/91 [Left Arm] O2 Sat by Pulse 97 Oximetry - General Appearance General appearance: well-developed (no acute distress) EENT: ATNC Neck: no JVD Respiratory: Present: Clear to Ascultation Cardiology: regular, S1S2 Gastrointestinal: normoactive bowel sounds, no tenderness (left inguinal scrotal hernia noted), other (: Hartley to gravity draining dark red/tea colored urine) Integumentary: warm and dry Neurologic: alert and oriented x3 Musculoskeletal: other (no edema to both lower extremities) Psychiatric: mood/affect appropriate, cooperative - Lab 09/21/16 04:32 09/21/16 04:32 Most recent lab results Calcium 8.7 mg/dL (8.4-10.2) 09/21/16 04:32 Phosphorus 3.20 mg/dL (2.5-4.5) 09/21/16 04:32
[2016-09-21] MEDS: APRESOLINE PO SCH ×3 (09:00→23:11)
[2016-09-21] MEDS: PROSCAR PO SCH (09:54)
[2016-09-21] MEDS: COREG PO SCH ×2 (09:54→23:12)
[2016-09-21] MEDS: IMDUR PO SCH (09:54)
[2016-09-21] MEDS: ROCEPHIN/NS 1 GM/50 ML 1 GM/50 ML BAG IV SCH (09:54)
[2016-09-21] MEDS: FLOMAX PO SCH (10:38)
--- NOTE | 2016-09-21 11:02 | Discharge Summary ---
Providers - Providers Date of Admission: 09/19/16 23:32 Date of discharge: 09/21/16 Attending physician: VARGAS YAO MD 09/20/16 06:34 Consult to Physician [CONS] Routine Consulting Provider: SANDY SAMANO Reason For Exam: CKD WITH U.T.I AND CR OF 4.7 Place consult to:: SANDY SAMANO Notified:: office Phone number called:: [phone] Was contact made?: Yes If yes, spoke with:: chalino Time called:: 11:21 09/20/16 10:12 Consult to Physician [CONS] Routine Consulting Provider: LEANN GRAFF I Reason For Exam: Left inguinal hernia, Needs PD catheter Place consult to:: Surgery/nallithombi Notified:: office Phone number called:: [phone] Was contact made?: Yes If yes, spoke with:: janel Time called:: 11:30 Primary care physician: STOCK REPLENISHER Hospitalization Reason for admission: UTI, acute on chronic renal failure Condition: Stable Disposition: TO HOME OR SELFCARE Time spent for discharge: 31 minutes - Discharge Diagnoses (1) Anemia in chronic renal disease Status: Acute Qualifiers: Chronic kidney disease stage: C (2) Chronic kidney disease (CKD) stage G4/A1, severely decreased glomerular filtration rate (GFR) between 15-29 mL/min/1.73 square meter and albuminuria creatinine ratio less than 30 mg/g Status: Acute (3) Gross hematuria Status: Acute (4) Left inguinal hernia Status: Acute (5) Renal failure Status: Acute Qualifiers: Renal failure chronicity: acute on chronic Acute renal failure type: A Chronic kidney disease stage: unspecified stage (6) UTI (urinary tract infection) Status: Acute Qualifiers: Urinary tract infection type: acute cystitis Hematuria presence: with hematuria Indwelling urinary catheter type: I Encounter type: E Qualified Code(s): N30.01 - Acute cystitis with hematuria Core Measure Documentation - Palliative Care Palliative Care/ Comfort Measures: Not Applicable - Core Measures Any of the following diagnoses?: none Exam - Physical Exam Narrative exam: Not in cardiopulmonary distress. The patient appeared chronically sick looking. Vital signs as documented. Head exam is unremarkable. No scleral icterus . Neck is without jugular venous distension, thyromegaly, or carotid bruits. Lungs are clear to auscultation. Cardiac exam reveals regular rate and Rhythm. First and second heart sounds normal. No murmurs, rubs or gallops. Abdominal exam reveals normal bowel sounds, no masses, no organomegaly and no aortic enlargement. Genitourinary patient has left inguinal hernia descending down to the testi.s Extremities are nonedematous and both femoral and pedal pulses are normal. LOAF COUNTER: Alert and oriented 3. No focal weakness. - Constitutional Vitals: Temp Pulse Resp BP Pulse Ox 99 F 0 L 20 143/80 98 09/21/16 07:25 09/21/16 07:25 09/21/16 07:25 09/21/16 09:54 09/21/16 07:25 Plan Activity: no restrictions Weight Bearing Status: Full Weight Bearing Diet: renal Follow up with: SANDY SAMANO MD [Staff Physician] - 7 Days ALINA SHIPLEY MD [Staff Physician] - 10 Days PRIMARY CARE, [Primary Care Provider] - 3-5 Days (Continue F/U with urologist as scheduled) Prescriptions: Ciprofloxacin HCl [Ciprofloxacin TAB] 250 mg PO Q18H #10 tablet
[2016-09-21 13:28] LABS: Basophils % (Manual) 0 % (0.0-1.8); Blastocytes % (Manual) 0 %
[2016-09-21 13:29] LABS: Anisocytosis 1+; Diff Status Complete; Platelet Estimate Consistent w Auto
[2016-09-21] MEDS ORDERED: PEPCID IV SCH (16:30)
[2016-09-22] MEDS: NACL 0.9% 1000 ML 1,000 ML IV SCH (02:24)
[2016-09-22 05:40] LABS: Basophils % (Auto) 0.4 % (0.0-1.8); Eosinophils % (Auto) 2.3 % (0.0-4.3); Hematocrit 26.2 % (35.5-45.6); Hemoglobin 8.7 gm/dl (11.8-15.2); Mean Corpuscular HGB Conc 33 % (32-34); Mean Corpuscular Hemoglobin 30 pg (28-32); Mean Corpuscular Volume 91 fl (84-94); Platelet Count 217 K/mm3 (140-440); Red Blood Count 2.89 M/mm3 (3.65-5.03); Red Cell Distribution Width 14.4 % (13.2-15.2); White Blood Count 10.8 K/mm3 (4.5-11.0)
[2016-09-22 06:02] LABS: BUN/Creatinine Ratio 14.5; Calcium 8.4 mg/dL (8.4-10.2); Chloride 106.6 mmol/L (98-107); Phosphorous 3.8 mg/dL (2.5-4.5); Potassium 4.4 mmol/L (3.6-5.0)
--- NOTE | 2016-09-22 07:57 | Progress Note ---
Assessment and Plan Assessment and plan: UTI with hematuria - Patient is on IV rocephin - Patient has history of hematuria previously and has been followed by [facility] and have scheduled appointment after his discharge from here Acute on chronic kidney disease stage IV - Nephrology is consulted and patient ultimately need dialysis as an O/P - Patient previously dialyzed and it was discontinued after his kidney function get improved, patient prefers to have peritoneal dialysis - Surgery was consulted and scheduled him for PD placement and management of inguinal hernia Left inguinal hernia extending to the left testis - Surgery consulted and will followed him as an O/P Anemia of chronic disease/CKD - Stable and will monitor DVT prophylaxis - heparin Disposition -Continue inpatient care - Patient Problems (1) Anemia in chronic renal disease Current Visit: Yes Status: Acute Qualifiers: Chronic kidney disease stage: C (2) Chronic kidney disease (CKD) stage G4/A1, severely decreased glomerular filtration rate (GFR) between 15-29 mL/min/1.73 square meter and albuminuria creatinine ratio less than 30 mg/g Current Visit: Yes Status: Acute (3) Gross hematuria Current Visit: Yes Status: Acute (4) Left inguinal hernia Current Visit: Yes Status: Acute (5) Renal failure Current Visit: Yes Status: Acute Qualifiers: Renal failure chronicity: acute on chronic Acute renal failure type: A Chronic kidney disease stage: unspecified stage (6) UTI (urinary tract infection) Current Visit: Yes Status: Acute Qualifiers: Urinary tract infection type: acute cystitis Hematuria presence: with hematuria Indwelling urinary catheter type: I Encounter type: E Qualified Code(s): N30.01 - Acute cystitis with hematuria History Interval history: Patient was seen and done this morning, patient has hematuria. Hospitalist Physical - Physical exam Narrative exam: Not in cardiopulmonary distress. The patient appeared chronically sick looking. Vital signs as documented. Head exam is unremarkable. No scleral icterus . Neck is without jugular venous distension, thyromegaly, or carotid bruits. Lungs are clear to auscultation. Cardiac exam reveals regular rate and Rhythm. First and second heart sounds normal. No murmurs, rubs or gallops. Abdominal exam reveals normal bowel sounds, no masses, no organomegaly and no aortic enlargement. Genitourinary patient has left inguinal hernia descending down to the left testis, blood mixed urine. Extremities are nonedematous and both femoral and pedal pulses are normal. CONTENT DESIGNER: Alert and oriented 3. No focal weakness. - Constitutional Vitals: Temp Pulse Resp BP Pulse Ox 99.4 F 94 H 20 134/76 100 09/21/16 23:10 09/21/16 23:12 09/21/16 23:10 09/21/16 23:12 09/21/16 23:10 General appearance: Present: no acute distress. Absent: disheveled Results - Labs CBC & Chem 7: 09/22/16 04:20 09/22/16 04:20 Labs: Laboratory Last Values WBC 10.8 K/mm3 (4.5-11.0) 09/22/16 04:20 RBC 2.89 M/mm3 (3.65-5.03) L 09/22/16 04:20 Hgb 8.7 gm/dl (11.8-15.2) L 09/22/16 04:20 Hct 26.2 % (35.5-45.6) L 09/22/16 04:20 MCV 91 fl (84-94) 09/22/16 04:20 MCH 30 pg (28-32) 09/22/16 04:20 MCHC 33 % (32-34) 09/22/16 04:20 RDW 14.4 % (13.2-15.2) 09/22/16 04:20 Plt Count 217 K/mm3 (140-440) 09/22/16 04:20 Lymph % (Auto) 7.3 % (13.4-35.0) L 09/22/16 04:20 [place] % (Auto) 10.2 % (0.0-7.3) H 09/22/16 04:20 Eos % (Auto) 2.3 % (0.0-4.3) 09/22/16 04:20 Baso % (Auto) 0.4 % (0.0-1.8) 09/22/16 04:20 Lymph # 0.8 K/mm3 (1.2-5.4) L 09/22/16 04:20 [place] # 1.1 K/mm3 (0.0-0.8) H 09/22/16 04:20 Eos # 0.2 K/mm3 (0.0-0.4) 09/22/16 04:20 Baso # 0.0 K/mm3 (0.0-0.1) 09/22/16 04:20 Add Manual Diff Complete 09/21/16 04:32 Total Counted 100 09/21/16 04:32 Seg Neutrophils % 79.8 % (40.0-70.0) H 09/22/16 04:20 Seg Neuts % (Manual) 73.0 % (40.0-70.0) H 09/21/16 04:32 Band Neutrophils % 0 % 09/21/16 04:32 Lymphocytes % (Manual) 14.0 % (13.4-35.0) 09/21/16 04:32 Reactive Lymphs % (Man) 0 % 09/21/16 04:32 Monocytes % (Manual) 10.0 % (0.0-7.3) H 09/21/16 04:32 Eosinophils % (Manual) 3.0 % (0.0-4.3) 09/21/16 04:32 Basophils % (Manual) 0 % (0.0-1.8) 09/21/16 04:32 Metamyelocytes % 0 % 09/21/16 04:32 Myelocytes % 0 % 09/21/16 04:32 Promyelocytes % 0 % 09/21/16 04:32 Blast Cells % 0 % 09/21/16 04:32 Nucleated RBC % Not Reportable 09/21/16 04:32 Seg Neutrophils # 8.7 K/mm3 (1.8-7.7) H 09/22/16 04:20 Seg Neutrophils # Man 10.1 K/mm3 (1.8-7.7) H 09/21/16 04:32 Band Neutrophils # 0.0 K/mm3 09/21/16 04:32 Lymphocytes # (Manual) 1.9 K/mm3 (1.2-5.4) 09/21/16 04:32 Abs React Lymphs (Man) 0.0 K/mm3 09/21/16 04:32 Monocytes # (Manual) 1.4 K/mm3 (0.0-0.8) H 09/21/16 04:32 Eosinophils # (Manual) 0.4 K/mm3 (0.0-0.4) 09/21/16 04:32 Basophils # (Manual) 0.0 K/mm3 (0.0-0.1) 09/21/16 04:32 Metamyelocytes # 0.0 K/mm3 09/21/16 04:32 Myelocytes # 0.0 K/mm3 09/21/16 04:32 Promyelocytes # 0.0 K/mm3 09/21/16 04:32 Blast Cells # 0.0 K/mm3 09/21/16 04:32 WBC Morphology Not Reportable 09/21/16 04:32 Hypersegmented Neuts Not Reportable 09/21/16 04:32 Hyposegmented Neuts Not Reportable 09/21/16 04:32 Hypogranular Neuts Not Reportable 09/21/16 04:32 Smudge Cells Not Reportable 09/21/16 04:32 Toxic Granulation Not Reportable 09/21/16 04:32 Toxic Vacuolation Not Reportable 09/21/16 04:32 Dohle Bodies Not Reportable 09/21/16 04:32 Pelger-Huet Anomaly Not Reportable 09/21/16 04:32 Evelyn Rods Not Reportable 09/21/16 04:32 Platelet Estimate Consistent w auto 09/21/16 04:32 Clumped Platelets Not Reportable 09/21/16 04:32 Plt Clumps, EDTA Not Reportable 09/21/16 04:32 Large Platelets Not Reportable 09/21/16 04:32 Giant Platelets Not Reportable 09/21/16 04:32 Platelet Satelliting Not Reportable 09/21/16 04:32 Plt Morphology Comment Not Reportable 09/21/16 04:32 RBC Morphology Not Reportable 09/21/16 04:32 Dimorphic RBCs Not Reportable 09/21/16 04:32 Polychromasia Not Reportable 09/21/16 04:32 Hypochromasia Not Reportable 09/21/16 04:32 Poikilocytosis Not Reportable 09/21/16 04:32 Anisocytosis 1+ 09/21/16 04:32 Microcytosis Not Reportable 09/21/16 04:32 Macrocytosis Not Reportable 09/21/16 04:32 Spherocytes Not Reportable 09/21/16 04:32 Pappenheimer Bodies Not Reportable 09/21/16 04:32 Sickle Cells Not Reportable 09/21/16 04:32 Target Cells Not Reportable 09/21/16 04:32 Tear Drop Cells Not Reportable 09/21/16 04:32 Ovalocytes Not Reportable 09/21/16 04:32 Helmet Cells Not Reportable 09/21/16 04:32 Aguero-[place] Bodies Not Reportable 09/21/16 04:32 [place] Rings Not Reportable 09/21/16 04:32 [place] Cells Not Reportable 09/21/16 04:32 Bite Cells Not Reportable 09/21/16 04:32 Crenated Cell Not Reportable 09/21/16 04:32 Elliptocytes Not Reportable 09/21/16 04:32 Acanthocytes (Spur) Not Reportable 09/21/16 04:32 Rouleaux Not Reportable 09/21/16 04:32 Hemoglobin C Crystals Not Reportable 09/21/16 04:32 Schistocytes Not Reportable 09/21/16 04:32 Malaria parasites Not Reportable 09/21/16 04:32 Hugo Bodies Not Reportable 09/21/16 04:32 Hem Pathologist Commnt No 09/21/16 04:32 Sodium 135 mmol/L (137-145) L 09/22/16 04:20 Potassium 4.4 mmol/L (3.6-5.0) 09/22/16 04:20 Chloride 106.6 mmol/L (98-107) 09/22/16 04:20 Carbon Dioxide 12 mmol/L (22-30) L D 09/22/16 04:20 Anion Gap 21 mmol/L 09/22/16 04:20 BUN 58 mg/dL (9-20) H 09/22/16 04:20 Creatinine 4.0 mg/dL (0.8-1.5) H 09/22/16 04:20 Estimated GFR 19 ml/min 09/22/16 04:20 BUN/Creatinine Ratio 14.50 % 09/22/16 04:20 Glucose 106 mg/dL (75-100) H 09/22/16 04:20 Calcium 8.4 mg/dL (8.4-10.2) 09/22/16 04:20 Phosphorus 3.80 mg/dL (2.5-4.5) 09/22/16 04:20 Iron 14 ug/dL (49-181) L 09/21/16 04:32 TIBC 109 mcg/dL (250-450) L 09/21/16 04:32 Ferritin 244.4 ng/mL (13.0-400.0) 09/21/16 04:32 Urine Color Red (Yellow) 09/19/16 15: Urine Turbidity Cloudy (Clear) 09/19/16 15:02 Urine pH 5.0 (5.0-7.0) 09/19/16 15:02 Ur Specific [place] 1.015 (1.003-1.030) 09/19/16 15:02 Urine Protein 100 mg/dl mg/dL (Negative) 09/19/16 15:02 Urine Glucose (UA) 50 mg/dL (Negative) 09/19/16 15: Urine Ketones Neg mg/dL (Negative) 09/19/16 15: Urine Blood Mod (Negative) 09/19/16 15: Urine Nitrite Neg (Negative) 09/19/16 15: Urine Bilirubin Neg (Negative) 09/19/16 15: Urine Urobilinogen < 2.0 mg/dL (<2.0) 09/19/16 15:02 Ur Leukocyte Esterase Mod (Negative) 09/19/16 15:02 Urine WBC (Auto) 30.0 /HPF (0.0-6.0) H 09/19/16 15: Urine RBC (Auto) > 182.0 /HPF (0.0-6.0) 09/19/16 15:02
--- NOTE | 2016-09-22 09:47 | Progress Note ---
Assessment and Plan - Patient Problems (1) Gross hematuria Current Visit: Yes Status: Acute Plan to address problem: On 0.9% NS infusion at 75 ml/hr Consulted Urology for further evaluation of gross hematuria in patient with h/o of PCKD Urine culture pending On Rocephin 1 g IVPB every 24 hours (2) Left inguinal hernia Current Visit: Yes Status: Acute Plan to address problem: Dr Cuevas (General surgery) on board, will follow up with patient in his office and schedule surgical repair of left inguinal hernia and placement of peritoneal dialysis catheter (3) Chronic kidney disease (CKD) stage G4/A1, severely decreased glomerular filtration rate (GFR) between 15-29 mL/min/1.73 square meter and albuminuria creatinine ratio less than 30 mg/g Current Visit: Yes Status: Acute Plan to address problem: Renal function reviewed, SCr level decreased to 4.0 today, yesterday's SCr level was 4.4 No acute indication for initiation of BOBJ DEVELOPER at this time Carbon dioxide level was 12 today, will repeat BMP at noon, may need to start on sodium bicarbonate supplementation, will follow up results Currently on 0.9% NS infusion at 75 ml/hr Renally dose medications Dr Vides on board, planning on left inguinal hernia repair and peritoneal dialysis catheter placement as an outpatient Obtain daily weight [place] Catheter: No (Removed on 09/21/16) Strict intake and output Renal plan discussed with Dr Barrios Continue supportive therapy (4) Anemia in chronic renal disease Current Visit: Yes Status: Acute Qualifiers: Chronic kidney disease stage: C Plan to address problem: Iron studies reviewed Start ferrlecit 125 mg IV daily x 8 doses (5) Metabolic acidosis Current Visit: Yes Status: Acute Plan to address problem: Carbon dioxide level was 12 today, yesterday's C02 level was 21, repeat BMP at noon, may need to start on sodium bicarbonate supplementation, will follow up results (6) UTI (urinary tract infection) Current Visit: Yes Status: Acute Qualifiers: Urinary tract infection type: acute cystitis Hematuria presence: with hematuria Indwelling urinary catheter type: I Encounter type: E Qualified Code(s): N30.01 - Acute cystitis with hematuria Plan to address problem: On Rocephin 1 g IVPB every 24 hours Urine cultures pending Subjective Date of service: 09/22/16 Interval history: Patient reports less back pain today, continues to have gross hematuria. Patient voided approximately 200 ml of dark blood urine. No family at bedside. Objective - Vital Signs Vital signs: Vital Signs - 12hr 09/21/16 09/21/16 09/21/16 23:10 23:11 23:12 Temperature 99.4 F Pulse Rate 94 H 94 H Pulse Rate [ 94 H Left From Monitor] Respiratory 20 Rate Blood Pressure 134/76 134/76 Blood Pressure 134/76 [Left Arm] O2 Sat by Pulse 100 Oximetry - General Appearance General appearance: well-developed (no acute distress) EENT: ATNC Neck: no JVD Respiratory: Present: Clear to Ascultation Cardiology: regular, S1S2 Gastrointestinal: normoactive bowel sounds, no tenderness, other (: Voided via urinal - noted to about 200 ml dark blood urine ) Integumentary: warm and dry Neurologic: alert and oriented x3 Musculoskeletal: other (no edema to both lower extremities) Psychiatric: mood/affect appropriate, cooperative - Lab 09/22/16 04:20 09/22/16 04:20 Most recent lab results Calcium 8.4 mg/dL (8.4-10.2) 09/22/16 04:20 Phosphorus 3.80 mg/dL (2.5-4.5) 09/22/16 04:20
[2016-09-22] MEDS: ROCEPHIN/NS 1 GM/50 ML 1 GM/50 ML BAG IV SCH (11:16)
[2016-09-22] MEDS: IMDUR PO SCH (11:19)
[2016-09-22] MEDS: PROSCAR PO SCH ×2 (11:20→18:49)
[2016-09-22] MEDS: FLOMAX PO SCH ×2 (11:20→22:27)
[2016-09-22] MEDS: COREG PO SCH ×2 (11:20→22:26)
[2016-09-22] MEDS: APRESOLINE PO SCH ×3 (11:23→22:25)
--- NOTE | 2016-09-22 13:16 | Progress Note ---
Assessment and Plan Assessment and plan: UTI with hematuria - Patient is on IV rocephin - Patient has history of hematuria previously and has been followed by [facility] - Urology consult is placed Acute on chronic kidney disease stage IV - Nephrology is consulted and patient ultimately need dialysis as an O/P - Patient previously dialyzed and it was discontinued after his kidney function get improved, patient prefers to have peritoneal dialysis - Surgery was consulted and scheduled him for PD placement and management of inguinal hernia Left inguinal hernia extending to the left testis - Surgery consulted and will followed him as an O/P Anemia of chronic disease/CKD - Stable and will monitor DVT prophylaxis - heparin Disposition -Continue inpatient care - Patient Problems (1) Anemia in chronic renal disease Current Visit: Yes Status: Acute Qualifiers: Chronic kidney disease stage: C (2) Chronic kidney disease (CKD) stage G4/A1, severely decreased glomerular filtration rate (GFR) between 15-29 mL/min/1.73 square meter and albuminuria creatinine ratio less than 30 mg/g Current Visit: Yes Status: Acute (3) Gross hematuria Current Visit: Yes Status: Acute (4) Left inguinal hernia Current Visit: Yes Status: Acute (5) Renal failure Current Visit: Yes Status: Acute Qualifiers: Renal failure chronicity: acute on chronic Acute renal failure type: A Chronic kidney disease stage: unspecified stage (6) UTI (urinary tract infection) Current Visit: Yes Status: Acute Qualifiers: Urinary tract infection type: acute cystitis Hematuria presence: with hematuria Indwelling urinary catheter type: I Encounter type: E Qualified Code(s): N30.01 - Acute cystitis with hematuria History Interval history: Patient was seen and done this morning, patient still has hematuria. Hospitalist Physical - Physical exam Narrative exam: Not in cardiopulmonary distress. The patient appeared chronically sick looking. Vital signs as documented. Head exam is unremarkable. No scleral icterus . Neck is without jugular venous distension, thyromegaly, or carotid bruits. Lungs are clear to auscultation. Cardiac exam reveals regular rate and Rhythm. First and second heart sounds normal. No murmurs, rubs or gallops. Abdominal exam reveals normal bowel sounds, no masses, no organomegaly and no aortic enlargement. Genitourinary patient has left inguinal hernia descending down to the left testis, blood mixed urine. Extremities are nonedematous and both femoral and pedal pulses are normal. CAR DETAILER: Alert and oriented 3. No focal weakness. - Constitutional Vitals: Temp Pulse Resp BP Pulse Ox 98.7 F 90 20 163/92 99 09/22/16 07:40 09/22/16 11:23 09/22/16 07:40 09/22/16 11:23 09/22/16 07:40 General appearance: Present: no acute distress. Absent: disheveled Results - Labs CBC & Chem 7: 09/22/16 04:20 09/22/16 04:20 Labs: Laboratory Last Values WBC 10.8 K/mm3 (4.5-11.0) 09/22/16 04:20 RBC 2.89 M/mm3 (3.65-5.03) L 09/22/16 04:20 Hgb 8.7 gm/dl (11.8-15.2) L 09/22/16 04:20 Hct 26.2 % (35.5-45.6) L 09/22/16 04:20 MCV 91 fl (84-94) 09/22/16 04:20 MCH 30 pg (28-32) 09/22/16 04:20 MCHC 33 % (32-34) 09/22/16 04:20 RDW 14.4 % (13.2-15.2) 09/22/16 04:20 Plt Count 217 K/mm3 (140-440) 09/22/16 04:20 Lymph % (Auto) 7.3 % (13.4-35.0) L 09/22/16 04:20 [place] % (Auto) 10.2 % (0.0-7.3) H 09/22/16 04:20 Eos % (Auto) 2.3 % (0.0-4.3) 09/22/16 04:20 Baso % (Auto) 0.4 % (0.0-1.8) 09/22/16 04:20 Lymph # 0.8 K/mm3 (1.2-5.4) L 09/22/16 04:20 [place] # 1.1 K/mm3 (0.0-0.8) H 09/22/16 04:20 Eos # 0.2 K/mm3 (0.0-0.4) 09/22/16 04:20 Baso # 0.0 K/mm3 (0.0-0.1) 09/22/16 04:20 Add Manual Diff Complete 09/21/16 04:32 Total Counted 100 09/21/16 04:32 Seg Neutrophils % 79.8 % (40.0-70.0) H 09/22/16 04:20 Seg Neuts % (Manual) 73.0 % (40.0-70.0) H 09/21/16 04:32 Band Neutrophils % 0 % 09/21/16 04:32 Lymphocytes % (Manual) 14.0 % (13.4-35.0) 09/21/16 04:32 Reactive Lymphs % (Man) 0 % 09/21/16 04:32 Monocytes % (Manual) 10.0 % (0.0-7.3) H 09/21/16 04:32 Eosinophils % (Manual) 3.0 % (0.0-4.3) 09/21/16 04:32 Basophils % (Manual) 0 % (0.0-1.8) 09/21/16 04:32 Metamyelocytes % 0 % 09/21/16 04:32 Myelocytes % 0 % 09/21/16 04:32 Promyelocytes % 0 % 09/21/16 04:32 Blast Cells % 0 % 09/21/16 04:32 Nucleated RBC % Not Reportable 09/21/16 04:32 Seg Neutrophils # 8.7 K/mm3 (1.8-7.7) H 09/22/16 04:20 Seg Neutrophils # Man 10.1 K/mm3 (1.8-7.7) H 09/21/16 04:32 Band Neutrophils # 0.0 K/mm3 09/21/16 04:32 Lymphocytes # (Manual) 1.9 K/mm3 (1.2-5.4) 09/21/16 04:32 Abs React Lymphs (Man) 0.0 K/mm3 09/21/16 04:32 Monocytes # (Manual) 1.4 K/mm3 (0.0-0.8) H 09/21/16 04:32 Eosinophils # (Manual) 0.4 K/mm3 (0.0-0.4) 09/21/16 04:32 Basophils # (Manual) 0.0 K/mm3 (0.0-0.1) 09/21/16 04:32 Metamyelocytes # 0.0 K/mm3 09/21/16 04:32 Myelocytes # 0.0 K/mm3 09/21/16 04:32 Promyelocytes # 0.0 K/mm3 09/21/16 04:32 Blast Cells # 0.0 K/mm3 09/21/16 04:32 WBC Morphology Not Reportable 09/21/16 04:32 Hypersegmented Neuts Not Reportable 09/21/16 04:32 Hyposegmented Neuts Not Reportable 09/21/16 04:32 Hypogranular Neuts Not Reportable 09/21/16 04:32 Smudge Cells Not Reportable 09/21/16 04:32 Toxic Granulation Not Reportable 09/21/16 04:32 Toxic Vacuolation Not Reportable 09/21/16 04:32 Dohle Bodies Not Reportable 09/21/16 04:32 Pelger-Huet Anomaly Not Reportable 09/21/16 04:32 Evelyn Rods Not Reportable 09/21/16 04:32 Platelet Estimate Consistent w auto 09/21/16 04:32 Clumped Platelets Not Reportable 09/21/16 04:32 Plt Clumps, EDTA Not Reportable 09/21/16 04:32 Large Platelets Not Reportable 09/21/16 04:32 Giant Platelets Not Reportable 09/21/16 04:32 Platelet Satelliting Not Reportable 09/21/16 04:32 Plt Morphology Comment Not Reportable 09/21/16 04:32 RBC Morphology Not Reportable 09/21/16 04:32 Dimorphic RBCs Not Reportable 09/21/16 04:32 Polychromasia Not Reportable 09/21/16 04:32 Hypochromasia Not Reportable 09/21/16 04:32 Poikilocytosis Not Reportable 09/21/16 04:32 Anisocytosis 1+ 09/21/16 04:32 Microcytosis Not Reportable 09/21/16 04:32 Macrocytosis Not Reportable 09/21/16 04:32 Spherocytes Not Reportable 09/21/16 04:32 Pappenheimer Bodies Not Reportable 09/21/16 04:32 Sickle Cells Not Reportable 09/21/16 04:32 Target Cells Not Reportable 09/21/16 04:32 Tear Drop Cells Not Reportable 09/21/16 04:32 Ovalocytes Not Reportable 09/21/16 04:32 Helmet Cells Not Reportable 09/21/16 04:32 Aguero-[place] Bodies Not Reportable 09/21/16 04:32 [place] Rings Not Reportable 09/21/16 04:32 [place] Cells Not Reportable 09/21/16 04:32 Bite Cells Not Reportable 09/21/16 04:32 Crenated Cell Not Reportable 09/21/16 04:32 Elliptocytes Not Reportable 09/21/16 04:32 Acanthocytes (Spur) Not Reportable 09/21/16 04:32 Rouleaux Not Reportable 09/21/16 04:32 Hemoglobin C Crystals Not Reportable 09/21/16 04:32 Schistocytes Not Reportable 09/21/16 04:32 Malaria parasites Not Reportable 09/21/16 04:32 Hugo Bodies Not Reportable 09/21/16 04:32 Hem Pathologist Commnt No 09/21/16 04:32 Sodium 135 mmol/L (137-145) L 09/22/16 04:20 Potassium 4.4 mmol/L (3.6-5.0) 09/22/16 04:20 Chloride 106.6 mmol/L (98-107) 09/22/16 04:20 Carbon Dioxide 12 mmol/L (22-30) L D 09/22/16 04:20 Anion Gap 21 mmol/L 09/22/16 04:20 BUN 58 mg/dL (9-20) H 09/22/16 04:20 Creatinine 4.0 mg/dL (0.8-1.5) H 09/22/16 04:20 Estimated GFR 19 ml/min 09/22/16 04:20 BUN/Creatinine Ratio 14.50 % 09/22/16 04:20 Glucose 106 mg/dL (75-100) H 09/22/16 04:20 Calcium 8.4 mg/dL (8.4-10.2) 09/22/16 04:20 Phosphorus 3.80 mg/dL (2.5-4.5) 09/22/16 04:20 Iron 14 ug/dL (49-181) L 09/21/16 04:32 TIBC 109 mcg/dL (250-450) L 09/21/16 04:32 Ferritin 244.4 ng/mL (13.0-400.0) 09/21/16 04:32 Urine Color Red (Yellow) 09/19/16 15:02 Urine Turbidity Cloudy (Clear) 09/19/16 15:02 Urine pH 5.0 (5.0-7.0) 09/19/16 15:02 Ur Specific [place] 1.015 (1.003-1.030) 09/19/16 15:02 Urine Protein 100 mg/dl mg/dL (Negative) 09/19/16 15:02 Urine Glucose (UA) 50 mg/dL (Negative) 09/19/16 15:02 Urine Ketones Neg mg/dL (Negative) 09/19/16 15:02 Urine Blood Mod (Negative) 09/19/16 15:02 Urine Nitrite Neg (Negative) 09/19/16 15:02 Urine Bilirubin Neg (Negative) 09/19/16 15:02 Urine Urobilinogen < 2.0 mg/dL (<2.0) 09/19/16 15:02 Ur Leukocyte Esterase Mod (Negative) 09/19/16 15:02 Urine WBC (Auto) 30.0 /HPF (0.0-6.0) H 09/19/16 15:02 Urine RBC (Auto) > 182.0 /HPF (0.0-6.0) 09/19/16 15:02
[2016-09-22 13:27] LABS: BUN/Creatinine Ratio 13.75; Calcium 8.8 mg/dL (8.4-10.2); Chloride 104.9 mmol/L (98-107); Potassium 4.8 mmol/L (3.6-5.0)
[2016-09-22] MEDS: MORPHINE IV PRN ×2 (14:40→23:42)
[2016-09-22] MEDS: NULECIT 125 MG in NACL 0.9% 100 ML IV SCH (14:41)
[2016-09-22 15:02] LABS: BUN/Creatinine Ratio 15.55; Calcium 8.3 mg/dL (8.4-10.2); Chloride 105.8 mmol/L (98-107); Potassium 4.2 mmol/L (3.6-5.0)
[2016-09-23] MEDS: NACL 0.9% 1000 ML 1,000 ML IV SCH (02:17)
[2016-09-23] MEDS: ROCEPHIN/NS 1 GM/50 ML 1 GM/50 ML BAG IV SCH (09:25)
[2016-09-23] MEDS: PROSCAR PO SCH (09:27)
[2016-09-23] MEDS: MORPHINE IV PRN ×2 (09:27→20:59)
[2016-09-23] MEDS: APRESOLINE PO SCH ×3 (09:46→20:57)
[2016-09-23] MEDS: COREG PO SCH ×2 (09:47→21:00)
[2016-09-23] MEDS: IMDUR PO SCH (09:48)
[2016-09-23] MEDS: NULECIT 125 MG in NACL 0.9% 100 ML IV SCH (09:57)
[2016-09-23] MEDS ORDERED: SODIUM BICARBONATE 150 MEQ in D5W 1,000 ML IV ONE (10:25)
[2016-09-23] MEDS ORDERED: BICITRA PO ONE (10:26)
--- NOTE | 2016-09-23 10:30 | Progress Note ---
Assessment and Plan (1) Gross hematuria Current Visit: Yes Status: Acute Plan to address problem: resolved cont IVF (2) Left inguinal hernia Current Visit: Yes Status: Acute Plan to address problem: Dr Cuevas (General surgery) on board, will follow up with patient in his office and schedule surgical repair of left inguinal hernia and placement of peritoneal dialysis catheter (3) Chronic kidney disease (CKD) stage G4/A1, severely decreased glomerular filtration rate (GFR) between 15-29 mL/min/1.73 square meter and albuminuria creatinine ratio less than 30 mg/g Current Visit: Yes Status: Acute Plan to address problem: No acute indication for initiation of ACCESS CONTROL OFFICER at this time Renally dose medications Dr Vides on board, planning on left inguinal hernia repair and peritoneal dialysis catheter placement as an outpatient will switch IVF to sodium bicarb for worsening CO2 level, will check venous PH, can be discharged tomorrow if CO2 level is responding Obtain daily weight (4) Anemia in chronic renal disease Current Visit: Yes Status: Acute Qualifiers: Chronic kidney disease stage: C Plan to address problem: cont ferrlecit 125 mg IV daily x 8 doses (5) Metabolic acidosis Current Visit: Yes Status: Acute Plan to address problem: sodium bicarb gtt as above Bicitra 30 cc TID ordered (6) UTI (urinary tract infection) Current Visit: Yes Status: Acute Qualifiers: Urinary tract infection type: acute cystitis Hematuria presence: with hematuria Indwelling urinary catheter type: I Encounter type: E Qualified Code(s): N30.01 - Acute cystitis with hematuria Plan to address problem: On Rocephin 1 g IVPB every 24 hours Subjective Date of service: 09/23/16 Principal diagnosis: chronic kidney disease Interval history: urine is clearing, mild SOB Objective - Vital Signs Vital signs: Vital Signs - 12hr 09/22/16 09/23/16 09/23/16 23:20 07:00 09:46 Temperature 98.8 F 99.2 F Pulse Rate 102 H Pulse Rate [ 97 H 102 H Left From Monitor] Respiratory 20 20 Rate Blood Pressure 164/94 Blood Pressure 154/79 163/94 [Left Arm] O2 Sat by Pulse 98 96 Oximetry 09/23/16 09/23/16 09:47 09:48 Temperature Pulse Rate 102 H 102 H Pulse Rate [ Left From Monitor] Respiratory Rate Blood Pressure 163/94 163/94 Blood Pressure [Left Arm] O2 Sat by Pulse Oximetry - General Appearance General appearance: well-developed, appears stated age EENT: ATNC, PERRL, mucous membranes moist Neck: no JVD, no carotid bruit Respiratory: Present: Clear to Ascultation Cardiology: regular, S1S2 Gastrointestinal: normoactive bowel sounds Integumentary: no rash, warm and dry Neurologic: no focal deficit, no asterixis, alert and oriented x3 Musculoskeletal: other (no edema in BLE) Psychiatric: mood/affect appropriate, cooperative - Lab 09/22/16 04:20 09/22/16 14:11 Most recent lab results Calcium 8.3 mg/dL (8.4-10.2) L 09/22/16 14:11 Phosphorus 3.80 mg/dL (2.5-4.5) 09/22/16 04:20
[2016-09-23 11:45] LABS: ISTAT Base Excess -15; ISTAT DEVICE 0; ISTAT HCO3 11.5; ISTAT PCO2 24.9 (35-45); ISTAT PH 7.273 (7.35-7.45); ISTAT PO2 78 (80-105); ISTAT SO2 94; ISTAT TCO2 12
--- NOTE | 2016-09-23 13:26 | Query-Infection ---
Mindi Taylor__Sumit Date:___09/23/2016 Furnace Setter/CDS:__Aditi Phone#:__[phone] Exercise your independent professional judgment when responding to this query. Questions asked do not imply a particular answer is desired or expected. We greatly appreciate your clarification on this issue. Clinical Documentation States: 51 Year old male was admitted on 09/19/2016. The Hospitalist progress note on 09/22/2016 states "Assessment and Plan Assessment and plan: UTI with hematuria - Patient is on IV rocephin - Patient has history of hematuria previously and has been followed by [facility]." The hospitalist H&P note on 09/20/2016 states "Patient is a 51-year-old male presenting to the emergency room with hematuria going on for few days and associated with flank pain." Clinical findings show: (please check applicable parameters) Infection, known /suspected, with some of the following indicators; Specify the infection: 3 General parameters [X] Fever (core temp >38.30C or 100.40F) [ ] Hypothermia (core temp <36C) [X] Heart rate >90 bpm [ ] Tachypnea: >20 bpm or pCO2 < 32 mmHg [ ] Altered mental status [ ] Significant edema / +ve fluid balance (>20 ml/kg 24 h) [ ] Hyperglycemia (Bl. glucose >110 mg/dl) w/o diabetes Inflammatory parameters [X] Leukocytosis (white blood cell count >12,000/l) [ ] Leukopenia (white blood cell count <4,000/l) [ ] Bandemia (immature WBC > 10%) [ ] Leucocyte Left Shift [ ] Plasma procalcitonin>2 SD above the normal value Hemodynamic and tissue perfusion parameters [ ] Arterial hypotension(SBP <90 mmHg, MAP <70 mmHg,or a SBP drop >40 mmHg in adults) [ ] Hyperlactatemia (>3 mmol/l) [ ] Anion Gap (> 11mEG/l) [ ] Decreased capillary refill or mottling Organ dysfunction parameters [ ] Arterial hypoxemia (PaO2/FIO2 <300) [ ] Creatinine increase =0.5 mg/dl [ ] Acute oliguria (urine output <0.5 ml | kg |h or 45 mM/l for at least 2 hrs) [ ] Coagulation abnormalities (INR >1.5 or activated partial thromboplastin time >60 s) [ ] Ileus (absent arline wel sounds) [ ] Thrombocytopenia (platelet count <100,000/l) [ ] Hyperbilirubinemia (plasma total bilirubin >4 mg/dl) According to the clinical indications above, can Bacteremia be further specified? If so, please indicate below and in your Progress Notes and/ or Discharge Summary. Indicate if the condition was present on admission. PHYSICIAN RESPONSE: [ ] Sepsis [ ] Severe Sepsis [ ] Septic Shock [ ] Septicemia [ ] Sepsis now resolved [ ] SIRS due to non-infectious cause with organ dysfunction [ ] SIRS due to non-infectious cause without organ dysfunction [ ] Other: [ ] Comment/Explanation: Present on Admission: [ ] Yes (Y) [ ] Clinically undeterminable (W) [ ] No ( N) [ ] Ruled Out Please also document response in your Progress Notes and/or Discharge Summary and indicate if the condition was present on admission Patient doesn't fullfill the criteria of sepsis and my note stated "Hematuria" not "Bacteremia". The hematuria is due to PCKD. Notes: SIRS/ SIRS WITH ORGAN DYSFUNCTION Systemic inflammatory response syndrome (SIRS) generally refers to the systemic response to trauma/ramesh or other insult such as Acute Myocardial Infarction, Acute Pancreatitis, and Major Surgery with symptoms including fever, tachycardia , tachypnea, and leukocytosis (1). BACTEREMIA Presence of viable bacteria in the circulating blood (2). This term is reserved for patients that do not manifest above SIRS response. SEPTICEMIA Generally refers to a systemic disease associated with the presence of pathological microorganisms or toxins in the blood, which can include bacteria, viruses, fungi or other organisms (1). SEPSIS Generally refers to SIRS due infection (1). SEVERE SEPSIS Generally refers to sepsis associated with acute organ dysfunction (1). SEPTIC SHOCK Generally refers to circulatory failure associated with severe sepsis (2), and defined as hypotension or hypoperfusion despite adequate fluid resuscitation (1 hour) (3). REFERENCES: 1. [place]/Society of Critical Care Medicine Consensus Conference. Definitions for sepsis and organ failure and guidelines for the use of innovative therapies in sepsis. Critical Care Med 1992;20:864 - 74. 2. Chris y MM, Basim MP, Aaron MARTIN, Jair E, Monster D, Tevin D, Tejinder J, Estefani SM , Nain JL, Michael G; International Sepsis Definitions Conference. 2000 SCCM/ESICM/ACCP/ATS/SIS International Sepsis Definitions Conference. Intensive Care Med. 2002 Apr;29(4):530-8. Epub 2002Jun 04. Review. PubMed PMID:[id number] 3. ICD-9-CM Official Guidelines for Coding and Reporting 4. Medscape Drugs, Diseases and Procedures references 5. [employer] Textbook of Internal Medicine. 18th Edition MTDD
--- NOTE | 2016-09-23 17:14 | Progress Note ---
Assessment and Plan Assessment and plan: UTI with hematuria - Patient is on IV rocephin - Patient has history of hematuria previously and has been followed by [facility] - Urology consult is placed Acute on chronic kidney disease stage IV - Nephrology is consulted and patient ultimately need dialysis as an O/P - Patient previously dialyzed and it was discontinued after his kidney function get improved, patient prefers to have peritoneal dialysis - Surgery was consulted and scheduled him for PD placement and management of inguinal hernia Metabolic acidosis - CO2 level was 12 - Patient is on bicarb Left inguinal hernia extending to the left testis - Surgery consulted and will followed him as an O/P Anemia of chronic disease/CKD - Stable and will monitor DVT prophylaxis - heparin Disposition - D/C if CO2 level is getting better. - Patient Problems (1) Anemia in chronic renal disease Current Visit: Yes Status: Acute Qualifiers: Chronic kidney disease stage: C (2) Chronic kidney disease (CKD) stage G4/A1, severely decreased glomerular filtration rate (GFR) between 15-29 mL/min/1.73 square meter and albuminuria creatinine ratio less than 30 mg/g Current Visit: Yes Status: Acute (3) Gross hematuria Current Visit: Yes Status: Acute (4) Left inguinal hernia Current Visit: Yes Status: Acute (5) Renal failure Current Visit: Yes Status: Acute Qualifiers: Renal failure chronicity: acute on chronic Acute renal failure type: A Chronic kidney disease stage: unspecified stage (6) UTI (urinary tract infection) Current Visit: Yes Status: Acute Qualifiers: Urinary tract infection type: acute cystitis Hematuria presence: with hematuria Indwelling urinary catheter type: I Encounter type: E Qualified Code(s): N30.01 - Acute cystitis with hematuria History Interval history: Patient was seen and done this morning, Hematuria resolved. Hospitalist Physical - Physical exam Narrative exam: Not in cardiopulmonary distress. The patient appeared chronically sick looking. Vital signs as documented. Head exam is unremarkable. No scleral icterus . Neck is without jugular venous distension, thyromegaly, or carotid bruits. Lungs are clear to auscultation. Cardiac exam reveals regular rate and Rhythm. First and second heart sounds normal. No murmurs, rubs or gallops. Abdominal exam reveals normal bowel sounds, no masses, no organomegaly and no aortic enlargement. Extremities are nonedematous and both femoral and pedal pulses are normal. LOCOMOTIVE ELECTRICIAN: Alert and oriented 3. No focal weakness. - Constitutional Vitals: Temp Pulse Resp BP Pulse Ox 99.2 F 92 H 20 145/77 96 09/23/16 07:00 09/23/16 14:28 09/23/16 07:00 09/23/16 14:28 09/23/16 07:00 General appearance: Present: no acute distress. Absent: disheveled Results - Labs CBC & Chem 7: 09/22/16 04:20 09/22/16 14:11 Labs: Laboratory Last Values WBC 10.8 K/mm3 (4.5-11.0) 09/22/16 04:20 RBC 2.89 M/mm3 (3.65-5.03) L 09/22/16 04:20 Hgb 8.7 gm/dl (11.8-15.2) L 09/22/16 04:20 Hct 26.2 % (35.5-45.6) L 09/22/16 04:20 MCV 91 fl (84-94) 09/22/16 04:20 MCH 30 pg (28-32) 09/22/16 04:20 MCHC 33 % (32-34) 09/22/16 04:20 RDW 14.4 % (13.2-15.2) 09/22/16 04:20 Plt Count 217 K/mm3 (140-440) 09/22/16 04:20 Lymph % (Auto) 7.3 % (13.4-35.0) L 09/22/16 04:20 Maury % (Auto) 10.2 % (0.0-7.3) H 09/22/16 04:20 Eos % (Auto) 2.3 % (0.0-4.3) 09/22/16 04:20 Baso % (Auto) 0.4 % (0.0-1.8) 09/22/16 04:20 Lymph # 0.8 K/mm3 (1.2-5.4) L 09/22/16 04:20 Maury # 1.1 K/mm3 (0.0-0.8) H 09/22/16 04:20 Eos # 0.2 K/mm3 (0.0-0.4) 09/22/16 04:20 Baso # 0.0 K/mm3 (0.0-0.1) 09/22/16 04:20 Add Manual Diff Complete 09/21/16 04:32 Total Counted 100 09/21/16 04:32 Seg Neutrophils % 79.8 % (40.0-70.0) H 09/22/16 04:20 Seg Neuts % (Manual) 73.0 % (40.0-70.0) H 09/21/16 04:32 Band Neutrophils % 0 % 09/21/16 04:32 Lymphocytes % (Manual) 14.0 % (13.4-35.0) 09/21/16 04:32 Reactive Lymphs % (Man) 0 % 09/21/16 04:32 Monocytes % (Manual) 10.0 % (0.0-7.3) H 09/21/16 04:32 Eosinophils % (Manual) 3.0 % (0.0-4.3) 09/21/16 04:32 Basophils % (Manual) 0 % (0.0-1.8) 09/21/16 04:32 Metamyelocytes % 0 % 09/21/16 04:32 Myelocytes % 0 % 09/21/16 04:32 Promyelocytes % 0 % 09/21/16 04:32 Blast Cells % 0 % 09/21/16 04:32 Nucleated RBC % Not Reportable 09/21/16 04:32 Seg Neutrophils # 8.7 K/mm3 (1.8-7.7) H 09/22/16 04:20 Seg Neutrophils # Man 10.1 K/mm3 (1.8-7.7) H 09/21/16 04:32 Band Neutrophils # 0.0 K/mm3 09/21/16 04:32 Lymphocytes # (Manual) 1.9 K/mm3 (1.2-5.4) 09/21/16 04:32 Abs React Lymphs (Man) 0.0 K/mm3 09/21/16 04:32 Monocytes # (Manual) 1.4 K/mm3 (0.0-0.8) H 09/21/16 04:32 Eosinophils # (Manual) 0.4 K/mm3 (0.0-0.4) 09/21/16 04:32 Basophils # (Manual) 0.0 K/mm3 (0.0-0.1) 09/21/16 04:32 Metamyelocytes # 0.0 K/mm3 09/21/16 04:32 Myelocytes # 0.0 K/mm3 09/21/16 04:32 Promyelocytes # 0.0 K/mm3 09/21/16 04:32 Blast Cells # 0.0 K/mm3 09/21/16 04:32 WBC Morphology Not Reportable 09/21/16 04:32 Hypersegmented Neuts Not Reportable 09/21/16 04:32 Hyposegmented Neuts Not Reportable 09/21/16 04:32 Hypogranular Neuts Not Reportable 09/21/16 04:32 Smudge Cells Not Reportable 09/21/16 04:32 Toxic Granulation Not Reportable 09/21/16 04:32 Toxic Vacuolation Not Reportable 09/21/16 04:32 Dohle Bodies Not Reportable 09/21/16 04:32 Pelger-Huet Anomaly Not Reportable 09/21/16 04:32 Evelyn Rods Not Reportable 09/21/16 04:32 Platelet Estimate Consistent w auto 09/21/16 04:32 Clumped Platelets Not Reportable 09/21/16 04:32 Plt Clumps, EDTA Not Reportable 09/21/16 04:32 Large Platelets Not Reportable 09/21/16 04:32 Giant Platelets Not Reportable 09/21/16 04:32 Platelet Satelliting Not Reportable 09/21/16 04:32 Plt Morphology Comment Not Reportable 09/21/16 04:32 RBC Morphology Not Reportable 09/21/16 04:32 Dimorphic RBCs Not Reportable 09/21/16 04:32 Polychromasia Not Reportable 09/21/16 04:32 Hypochromasia Not Reportable 09/21/16 04:32 Poikilocytosis Not Reportable 09/21/16 04:32 Anisocytosis 1+ 09/21/16 04:32 Microcytosis Not Reportable 09/21/16 04:32 Macrocytosis Not Reportable 09/21/16 04:32 Spherocytes Not Reportable 09/21/16 04:32 Pappenheimer Bodies Not Reportable 09/21/16 04:32 Sickle Cells Not Reportable 09/21/16 04:32 Target Cells Not Reportable 09/21/16 04:32 Tear Drop Cells Not Reportable 09/21/16 04:32 Ovalocytes Not Reportable 09/21/16 04:32 Helmet Cells Not Reportable 09/21/16 04:32 [place] Bodies Not Reportable 09/21/16 04:32 [place] Rings Not Reportable 09/21/16 04:32 Mima Cells Not Reportable 09/21/16 04:32 Bite Cells Not Reportable 09/21/16 04:32 Crenated Cell Not Reportable 09/21/16 04:32 Elliptocytes Not Reportable 09/21/16 04:32 Acanthocytes (Spur) Not Reportable 09/21/16 04:32 Rouleaux Not Reportable 09/21/16 04:32 Hemoglobin C Crystals Not Reportable 09/21/16 04:32 Schistocytes Not Reportable 09/21/16 04:32 Malaria parasites Not Reportable 09/21/16 04:32 Hugo Bodies Not Reportable 09/21/16 04:32 Hem Pathologist Commnt No 09/21/16 04:32 POC ABG pH 7.273 (7.35-7.45) L 09/23/16 11:22 POC ABG pCO2 24.9 (35-45) L 09/23/16 11:22 POC ABG pO2 78 (80-105) L 09/23/16 11:22 POC ABG HCO3 11.5 09/23/16 11:22 POC ABG Total CO2 12 09/23/16 11:22 POC ABG O2 Sat 94 09/23/16 11:22 POC ABG Base Excess -15 09/23/16 11:22 FiO2 21 % 09/23/16 11:22 Sodium 133 mmol/L (137-145) L 09/22/16 14:11 Potassium 4.2 mmol/L (3.6-5.0) 09/22/16 14:11 Chloride 105.8 mmol/L (98-107) 09/22/16 14:11 Carbon Dioxide 12 mmol/L (22-30) L 09/22/16 14:11 Anion Gap 19 mmol/L 09/22/16 14:11 BUN 56 mg/dL (9-20) H 09/22/16 14:11 Creatinine 3.6 mg/dL (0.8-1.5) H 09/22/16 14:11 Estimated GFR 22 ml/min 09/22/16 14:11 BUN/Creatinine Ratio 15.55 % 09/22/16 14:11 Glucose 161 mg/dL (75-100) H 09/22/16 14:11 Calcium 8.3 mg/dL (8.4-10.2) L 09/22/16 14:11 Phosphorus 3.80 mg/dL (2.5-4.5) 09/22/16 04:20 Iron 14 ug/dL (49-181) L 09/21/16 04:32 TIBC 109 mcg/dL (250-450) L 09/21/16 04:32 Ferritin 244.4 ng/mL (13.0-400.0) 09/21/16 04:32 Urine Color Red (Yellow) 09/19/16 15:02 Urine Turbidity Cloudy (Clear) 09/19/16 15:02 Urine pH 5.0 (5.0-7.0) 09/19/16 15:02 Ur Specific Bradley 1.015 (1.003-1.030) 09/19/16 15:02 Urine Protein 100 mg/dl mg/dL (Negative) 09/19/16 15:02 Urine Glucose (UA) 50 mg/dL (Negative) 09/19/16 15:02 Urine Ketones Neg mg/dL (Negative) 09/19/16 15:02 Urine Blood Mod (Negative) 09/19/16 15:02 Urine Nitrite Neg (Negative) 09/19/16 15:02 Urine Bilirubin Neg (Negative) 09/19/16 15:02 Urine Urobilinogen < 2.0 mg/dL (<2.0) 09/19/16 15:02 Ur Leukocyte Esterase Mod (Negative) 09/19/16 15:02 Urine WBC (Auto) 30.0 /HPF (0.0-6.0) H 09/19/16 15:02 Urine RBC (Auto) > 182.0 /HPF (0.0-6.0) 09/19/16 15:02
[2016-09-23] MEDS: FLOMAX PO SCH (21:01)
[2016-09-24 06:17] LABS: Basophils % (Auto) 0.5 % (0.0-1.8); Eosinophils % (Auto) 3.8 % (0.0-4.3); Hematocrit 24.9 % (35.5-45.6); Hemoglobin 8.2 gm/dl (11.8-15.2); Mean Corpuscular HGB Conc 33 % (32-34); Mean Corpuscular Hemoglobin 29 pg (28-32); Mean Corpuscular Volume 89 fl (84-94); Platelet Count 239 K/mm3 (140-440); Red Cell Distribution Width 13.6 % (13.2-15.2); White Blood Count 11.7 K/mm3 (4.5-11.0)
[2016-09-24 06:39] LABS: BUN/Creatinine Ratio 13.63; Calcium 8.6 mg/dL (8.4-10.2); Chloride 106.9 mmol/L (98-107); Phosphorous 3.1 mg/dL (2.5-4.5); Potassium 3.8 mmol/L (3.6-5.0)
[2016-09-24] MEDS: APRESOLINE PO SCH ×2 (09:06→17:11)
[2016-09-24] MEDS: MORPHINE IV PRN ×2 (09:07→16:57)
[2016-09-24] MEDS: COREG PO SCH (09:07)
[2016-09-24] MEDS: PROSCAR PO SCH ×2 (09:07→09:12)
[2016-09-24] MEDS: ROCEPHIN/NS 1 GM/50 ML 1 GM/50 ML BAG IV SCH (09:13)
--- NOTE | 2016-09-24 10:13 | Discharge Summary ---
Providers - Providers Date of Admission: 09/19/16 23:32 Date of discharge: 09/24/16 Attending physician: NELLA ALBA 09/20/16 06:34 Consult to Physician [CONS] Routine Consulting Provider: SANDY ORTIZ Reason For Exam: CKD WITH U.T.I AND CR OF 4.7 Place consult to:: SANDY ORITZ Notified:: office Phone number called:: [phone] Was contact made?: Yes If yes, spoke with:: chalino Time called:: 11:21 09/20/16 10:12 Consult to Physician [CONS] Routine Consulting Provider: LEANN GRAFF I Reason For Exam: Left inguinal hernia, Needs PD catheter Place consult to:: Surgery/mary Notified:: office Phone number called:: [phone] Was contact made?: Yes If yes, spoke with:: janel Time called:: 11:30 09/22/16 09:37 Consult to Physician [CONS] Routine Consulting Provider: CYDNEY GARZON Reason For Exam: gross hematuria -h/o polycystic kidney disease Primary care physician: DIVER ASSISTANT Hospitalization Condition: Stable Disposition: DC-01 TO HOME OR SELFCARE - Discharge Diagnoses (1) Acute kidney injury superimposed on chronic kidney disease Status: Acute (2) Anemia in chronic renal disease Status: Acute Qualifiers: Chronic kidney disease stage: C (3) Left inguinal hernia Status: Acute (4) Metabolic acidosis Status: Acute Core Measure Documentation - Palliative Care Palliative Care/ Comfort Measures: Not Applicable Exam - Constitutional Vitals: Temp Pulse Resp BP Pulse Ox 98.5 F 100 H 16 167/100 98 09/24/16 04:40 09/24/16 09:07 09/24/16 04:40 09/24/16 09:07 09/24/16 04:00 Plan Diet: low fat, low cholesterol, low salt, renal Additional Instructions: 1.Follow up with PCp in 3-5 days. 2.Follow up with Dr. Ortiz in 3-5 days. 3.Follow up with Dr. Shipley in 3-5 days to arrange outpatient peritoneal dialysis catheter and inguinal hernia repair. Follow up with: SANDY ORTIZ MD [Staff Physician] - 7 Days ALINA SHIPLEY MD [Staff Physician] - 10 Days [facility], [Primary Care Provider] - 3-5 Days (Continue F/U with urologist as scheduled)
[2016-09-24] MEDS: IMDUR PO SCH (10:16)
[2016-09-24] MEDS: NULECIT 125 MG in NACL 0.9% 100 ML IV SCH (10:16)
--- NOTE | 2016-09-24 14:43 | Query- Renal Failure ---
Dear Date:__09/24/2016 Supervisor Order Takers/CDS:__Aditi Phone#:__[phone] Exercise your independent professional judgment when responding to query. Questions asked do not imply a particular answer is desired or expected. We greatly appreciate your clarification on this issue. Clinical Documentation States: 51 Year old male was admitted on 09/24/2016. The Nephrology Consult note states "patient with h/o CKD due to polycystic kidney disease, does not follow with a curing supervisor, according to him he requried dialysis about 2 years ago but his kidney function improved since, he mention that his mother had the same problem and required dialysis at some point, he came to the ED for hematuria and flank pain for the last few days, he follows with urology for the issues, he has h/o kidney stones and UTI. when seen he stated he started to feel better when seen this AM but remains to have blood in the urine." The Discharge summary states "- Discharge Diagnoses (1) Acute kidney injury superimposed on chronic kidney disease Status: Acute." Clinical Findings Show: Creatinine: 4.4 Please clarify if you mean: Acute Renal Failure with or due to: [x ] Tubular Necrosis [ ] Medullary Necrosis [ ] Vasomotor Nephropathy [ ] Shock Kidney [ ] Tubular Nephrosis [ ] Renal Tubular Stasis [ ] Cortical Necrosis [ ] Acute Renal Failure (unspecified) [ ] Lower Tubular Nephrosis [ ] Other: [ ] Not Applicable Present on Admission: [x ] Yes (Y) [ ] Clinically undeterminable (W) [ ] No (N) Please also document response in your Progress Notes and/or Discharge Summary and indicate if the condition was present on admission. DAE
--- NOTE | 2016-09-24 16:04 | Progress Note ---
Assessment and Plan (1) Gross hematuria Current Visit: Yes Status: Acute Plan to address problem: resolved (2) Left inguinal hernia Current Visit: Yes Status: Acute Plan to address problem: Dr Cuevas (General surgery) on board, will follow up with patient in his office and schedule surgical repair of left inguinal hernia and placement of peritoneal dialysis catheter (3) Chronic kidney disease (CKD) stage G4/A1, severely decreased glomerular filtration rate (GFR) between 15-29 mL/min/1.73 square meter and albuminuria creatinine ratio less than 30 mg/g Current Visit: Yes Status: Acute Plan to address problem: No acute indication for initiation of SOUND EFFECTS SUPERVISOR at this time Ok to be discharged from renal standpoint, to be followed in our office within 1 -2 weeks (4) Anemia in chronic renal disease Current Visit: Yes Status: Acute Qualifiers: Chronic kidney disease stage: C Plan to address problem: receiving IV iron (5) Metabolic acidosis Current Visit: Yes Status: Acute Plan to address problem: cont Bicitra 30 cc TID (6) UTI (urinary tract infection) Current Visit: Yes Status: Acute Qualifiers: Urinary tract infection type: acute cystitis Hematuria presence: with hematuria Indwelling urinary catheter type: I Encounter type: E Qualified Code(s): N30.01 - Acute cystitis with hematuria Plan to address problem: completed abx course Subjective Date of service: 09/24/16 Principal diagnosis: chronic kidney disease Interval history: denies acute issues since seen yesterday Objective - Vital Signs Vital signs: Vital Signs - 12hr 09/24/16 09/24/16 09/24/16 04:40 07:00 09:06 Temperature 98.5 F 98.7 F Pulse Rate 100 H Pulse Rate [ 104 H 100 H Right Radial] Respiratory 16 20 Rate Blood Pressure 167/101 Blood Pressure 190/105 167/101 [Right Arm] O2 Sat by Pulse 99 Oximetry 09/24/16 09/24/16 09:07 10:16 Temperature Pulse Rate 100 H 100 H Pulse Rate [ Right Radial] Respiratory Rate Blood Pressure 167/100 167/100 Blood Pressure [Right Arm] O2 Sat by Pulse Oximetry - General Appearance General appearance: well-developed, well-nourished EENT: ATNC, PERRL, mucous membranes moist Neck: no JVD, no carotid bruit Respiratory: Present: Clear to Ascultation Cardiology: regular, S1S2 Gastrointestinal: normoactive bowel sounds Integumentary: no rash, warm and dry Neurologic: no focal deficit, no asterixis, alert and oriented x3 Musculoskeletal: other (no edema in BLE) Psychiatric: mood/affect appropriate, cooperative - Lab 09/24/16 05:00 09/24/16 05:00 Most recent lab results Calcium 8.6 mg/dL (8.4-10.2) 09/24/16 05:00 Phosphorus 3.10 mg/dL (2.5-4.5) 09/24/16 05:00
[2016-09-24 18:05] VITALS: BP 190/89
== END 2016-09-24 16:20 | disposition home or self-care (01) | DRG 683 ==
LOC: ED 13:57 → 3A 23:32
PROVIDERS: ADMIT Internal Medicine; ATTEND Internal Medicine
PROC: 4A033R1 Measurement of Arterial Saturation, Peripheral, Percutaneous Approach (ICD-10-PCS; principal; 2016-09-20)
DX: N17.9 Acute kidney failure, unspecified (principal); N30.01 Acute cystitis with hematuria; Q61.3 Polycystic kidney, unspecified; I13.0 Hypertensive heart and chronic kidney disease with heart failure and stage 1 through stage 4 chronic kidney disease, or unspecified chronic kidney disease; I50.9 Heart failure, unspecified; K21.9 Gastro-esophageal reflux disease without esophagitis; J44.9 Chronic obstructive pulmonary disease, unspecified; D63.1 Anemia in chronic kidney disease; N18.4 Chronic kidney disease, stage 4 (severe); K40.90 Unilateral inguinal hernia, without obstruction or gangrene, not specified as recurrent; Z87.891 Personal history of nicotine dependence; I25.2 Old myocardial infarction
CPT/HCPCS: 36415; 36600; 74176; 80048; 81001; 82728; 82803; 83550; 84100; 85007; 85025; 85027; 87086; 96374; A9270-GY; J0696; J2270; J2405; J2916; J7030; J7070

== ENCOUNTER 2016-11-05 11:42 | Day surgery (SDC) | payer OTHER ==
[~2016-11-05 11:42] MED LIST: ANCEF/STERILE WATER 2 GM/20 ML IV NR; HEPARIN SUB-Q NR; MARCAINE 0.25% INFILTRATI ONE; NACL 0.9% 1000 ML 1,000 ML IV SCH; NACL 0.9% IR ONE; PEPCID PO NR; VERSED IV NR; XYLOCAINE 1%/ EPI 1:100,000 INFILTRATI ONE; ZOFRAN IV PRN
[2016-11-05 13:16] LABS: Basophils % (Auto) 1.3 % (0.0-1.8); Eosinophils % (Auto) 10.8 % (0.0-4.3); Hemoglobin 10.3 gm/dl (11.8-15.2); Mean Corpuscular HGB Conc 33 % (32-34); Mean Corpuscular Hemoglobin 30 pg (28-32); Mean Corpuscular Volume 91 fl (84-94); Platelet Count 112 K/mm3 (140-440); Red Cell Distribution Width 15.2 % (13.2-15.2); White Blood Count 5.4 K/mm3 (4.5-11.0)
[2016-11-05] MEDS ORDERED: DILAUDID ONE (13:22)
[2016-11-05] MEDS ORDERED: DIPRIVAN 10 MG/ML IV ONE (13:22)
[2016-11-05] MEDS ORDERED: XYLOCAINE MPF 2% ONE (13:22)
[2016-11-05] MEDS ORDERED: ZEMURON IV ONE (13:23)
[2016-11-05 13:26] LABS: BUN/Creatinine Ratio 15.85; Calcium 8.8 mg/dL (8.4-10.2); Chloride 103.2 mmol/L (98-107); Potassium 4.6 mmol/L (3.6-5.0)
[2016-11-05] MEDS ORDERED: XYLOCAINE 1%/ EPI 1:100,000 INFILTRATI ONE (13:28)
[2016-11-05] MEDS ORDERED: MARCAINE 0.25% INFILTRATI ONE (13:28)
--- NOTE | 2016-11-05 13:33 | Anesthesia Consultation ---
Anesthesia Consult and Med Hx Date of service: 11/05/16 - Airway Anesthetic Teeth Evaluation: Good ROM Head & Neck: Adequate Mental/Hyoid Distance: Adequate Mallampati Class: Class II Intubation Access Assessment: Probably Good - Pulmonary Exam CTA: Yes - Cardiac Exam Cardiac Exam: RRR - Pre-Operative Health Status ASA Pre-Surgery Classification: ASA3 Proposed Anesthetic Plan: General (no GA problems) - Pulmonary Hx Smoking: Yes (STOPPED 2004- OCC SMOKER) Hx Asthma: No COPD: Yes (NO MEDS) Hx Pneumonia: No Hx Sleep Apnea: No (STACEY PRE SCREEN HIGH RISK) - Cardiovascular System Hx Hypertension: Yes (X 15 YRS) Hx Coronary Artery Disease: Yes Hx Heart Attack/AMI: Yes (X 2 2011) - Endocrine Hx Renal Disease: Yes (POLYCYSTIC KIDNEY DISEASE) - Hematic Hx Anemia: Yes - Other Systems Hx Alcohol Use: Yes (2-3 BEERS PER DAY) Hx Cancer: No
--- NOTE | 2016-11-05 13:33 | Anesthesia Day of Surgery ---
Anesthesia Day of Surgery - Day of Surgery Patient Examined: Yes Patient H&P Reviewed: Yes Patient is NPO: Yes Beta Blockers: Yes Cardiac Clearance: Yes
[2016-11-05] MEDS ORDERED: ZOFRAN ONE (14:07)
[2016-11-05] MEDS ORDERED: NEOSTIGMINE ONE (14:29)
[2016-11-05] MEDS ORDERED: BLOXIVERZ ONE (14:29)
[2016-11-05] MEDS ORDERED: ROBINUL ONE ×2 (14:29→14:52)
[2016-11-05] MEDS: DILAUDID IV PRN ×3 (15:20→15:55)
--- NOTE | 2016-11-05 15:20 | Post Operative Note ---
Pre-op diagnosis: Left inguino scrotal hernia Post-op diagnosis: same Findings: Sliding type left inguino scrotal hernia Procedure: Open mesh repair left inguinal hernia Anesthesia: GETA Surgeon: ALINA SHIPLEY Estimated blood loss: minimal Pathology: none Condition: stable Disposition: PACU
--- NOTE | 2016-11-05 15:23 | Discharge Summary ---
Short Stay Discharge Plan Weight Bearing Status: Full Weight Bearing Diet: regular Wound: open to air Follow up with: PRIMARY CARE, [Primary Care Provider] - 7 Days Prescriptions: Ondansetron [Zofran TAB] 4 mg PO Q8HR PRN #20 tablet PRN Reason: Nausea Oxycodone HCl/Acetaminophen [Percocet 7.5/325 mg] 1 each PO Q6HR PRN #30 tablet PRN Reason: Pain
[2016-11-05] MEDS ORDERED: APRESOLINE ONE (15:24)
[2016-11-05] MEDS ORDERED: APRESOLINE IV ONE (15:45)
[2016-11-05] MEDS ORDERED: NORCO 7.5/325 PO SCH (17:03)
[2016-11-05] MEDS ORDERED: ZOFRAN PO SCH (17:03)
[2016-11-05] MEDS ORDERED: APRESOLINE IV SCH (18:30)
--- NOTE | 2016-11-05 19:28 | Operative Report ---
PREOPERATIVE DIAGNOSIS: Left inguinoscrotal hernia. POSTOPERATIVE DIAGNOSIS: Large left sliding inguinoscrotal hernia. OPERATIVE PROCEDURE: Open mesh repair of left inguinoscrotal hernia. ANESTHESIA: General endotracheal. SURGEON: Erickson Cuevas M.D. Supplemental ilioinguinal block with 0.25% Marcaine. INDICATIONS: A 51-year-old male patient presenting with a large symptomatic partially reducible left inguinal scrotal hernia. He has multiple medical problems including congestive heart failure, chronic renal failure, history of COPD and probable alcohol abuse. He was recommended to have a peritoneal dialysis catheter placed by the research program intern but he declined and because of the risk of incarceration of this large hernia he is brought in for open mesh repair under general anesthesia. Preoperative cardiac clearance was done. FINDINGS: Large left inguinoscrotal hernia that is sliding in type with thickened hernial sac where it is sliding in nature. This appears to be part of the colon anatomically. Visualized part of the bowel loops was viable. Minimal clear peritoneal fluid only was noted. On the outside, there was significant scarring of the hernial sac to the cord structures. In some cases, the veins were torturous in nature. Inguinal floor muscles were of adequate strength. The internal ring is stretched for 4-5 cm. DESCRIPTION OF PROCEDURE: After satisfactory induction of general endotracheal anesthesia, abdomen is thoroughly scrubbed with Hibiclens and then prepped with Betadine and Ioban occlusive drape was placed over it to prevent any contamination. Ilioinguinal block with 0.25% Marcaine was given. Inguinal crease incision was made. External oblique aponeurosis was divided. The large hernial sac with contents and the cord structures were delivered into the wound and held with a Jesse drain. Attempt was made to separate the hernial sac from the cord structures. A small opening was made away from the sliding part of the hernial sac and the internal contents were visualized. This opening was approximately 2 cm and it was closed. By blunt and sharp dissection with judicious amount of cautery, the entire hernia with its contents was from the cord structures, was reduced into the peritoneal cavity. The stretched internal ring was approximated with continuous 2-0 Prolene sutures. The hypertrophic cremasteric fascia was divided and removed. Conjoint tendon above and shelving edge of the inguinal ligament below were well delineated. Inguinal floor was covered with a keyhole Prolene mesh anchoring to the structures with multiple interrupted 2-0 Prolene sutures. Both slips were carried out laterally and attached to each other. soaked in warm saline was placed over the cord structures and no further oozing or bleeding and hematoma was noted. Sponge and instruments counts were reported to be correct. External oblique constructed with 2-0 Vicryl and subcutaneous tissue was closed with 3-0 Vicryl and skin with 4-0 Monocryl sutures. There was minimal blood loss. He tolerated the procedure well and transferred to postanesthesia care unit in satisfactory condition. JOB# [id number] ESTEFANY/BETTIE
[2016-11-05 20:02] VITALS: BP 194/108
[2016-11-06] MEDS ORDERED: AMIDATE IV ONE (14:00)
== END 2016-11-05 19:30 | disposition home or self-care (01) ==
LOC: OR 11:42
PROVIDERS: ATTEND Surgery
DX: K40.90 Unilateral inguinal hernia, without obstruction or gangrene, not specified as recurrent (principal); J44.9 Chronic obstructive pulmonary disease, unspecified; I25.10 Atherosclerotic heart disease of native coronary artery without angina pectoris; I25.2 Old myocardial infarction; I13.0 Hypertensive heart and chronic kidney disease with heart failure and stage 1 through stage 4 chronic kidney disease, or unspecified chronic kidney disease; I50.9 Heart failure, unspecified; N18.9 Chronic kidney disease, unspecified; D64.9 Anemia, unspecified; Z87.442 Personal history of urinary calculi; Z98.890 Other specified postprocedural states; Z79.899 Other long term (current) drug therapy; Z72.89 Other problems related to lifestyle; Z87.891 Personal history of nicotine dependence
CPT/HCPCS: 36415; 49525; 80048; 85025; J0360; J0690; J1170; J1644; J2250; J2405; J2704; J2710; J7030; Q0162